=== PATIENT | female | born 1955 | race Caucasian/White ===

== ENCOUNTER → 2021-11-04 | Outpatient (REF) | payer MEDICARE, MEDICAID, SELFPAY ==
[2021-11-04 08:05] LABS: Anion Gap 4 (5-15); BUN 17 mg/dL (7-18); BUN/Creat Ratio 24.8 RATIO (10-20); Calcium,Total 8.6 mg/dL (8.5-10.1); Chloride 97 mmol/L (98-107); Creatinine, Serum 0.69 mg/dL (0.55-1.02); EST Glomerular Filtration Rate 91 mL/min (>60); Est Glom Filt Rate - Afr Amer 111 mL/min (>60); Glucose 91 mg/dL (74-106); Sodium Level 131 mmol/L (136-145)
== END | disposition home or self-care (01) ==
LOC: OLS.SWAL 05:00
DX: E87.1 Hypo-osmolality and hyponatremia (principal)
CPT/HCPCS: 36415; 80048

== ENCOUNTER → 2021-11-21 | Outpatient (REF) | payer MEDICARE, MEDICAID, SELFPAY ==
[2021-11-21 08:50] LABS: Anion Gap 6 (5-15); BUN 22 mg/dL (7-18); BUN/Creat Ratio 29.7 RATIO (10-20); Calcium,Total 9.3 mg/dL (8.5-10.1); Chloride 101 mmol/L (98-107); Creatinine, Serum 0.74 mg/dL (0.55-1.02); EST Glomerular Filtration Rate 84 mL/min (>60); Est Glom Filt Rate - Afr Amer 101 mL/min (>60); Glucose 82 mg/dL (74-106); Potassium 3.9 mmol/L (3.5-5.1); Sodium Level 136 mmol/L (136-145)
== END ==
LOC: OLS.SWAL 05:00
PROVIDERS: Visit Provider Nurse Practitioner Family
DX: I10 Essential (primary) hypertension (principal)
CPT/HCPCS: 36415; 80048

== ENCOUNTER 2022-01-15 14:39 | Emergency (ER) | payer MEDICARE, MEDICAID, SELFPAY ==
[2022-01-15 14:40] VITALS: BP 168/93; PULSE 104; RESP 16; TEMP 36.6; O2SAT 98; BMI 31.0
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
--- NOTE | 2022-01-15 15:50 | ED.RN ---
this rn called report back to nisha argueta, staff informed of pt discharge and that she will be returning home. friend ryan listed as emergency contact called and reports she will be in to take pt home as soon as she is able.
== END 2022-01-15 16:49 | disposition home or self-care (01) ==
PROVIDERS: Emergency Provider Emergency Medicine; Visit Provider Emergency Medicine
DX: F41.9 Anxiety disorder, unspecified (principal); I10 Essential (primary) hypertension; Z79.899 Other long term (current) drug therapy
CPT/HCPCS: 99284

== ENCOUNTER → 2022-01-27 | Outpatient (REF) | payer MEDICARE, MEDICAID, SELFPAY ==
[2022-01-27 08:06] LABS: Urine Sodium 39 mmol/L (Not Establ.)
[2022-01-27 08:15] LABS: Anion Gap 6 (5-15); BUN 16 mg/dL (7-18); BUN/Creat Ratio 22.1 RATIO (10-20); Calcium,Total 8.7 mg/dL (8.5-10.1); Chloride 101 mmol/L (98-107); Creatinine, Serum 0.72 mg/dL (0.55-1.02); EST Glomerular Filtration Rate 86 mL/min (>60); Est Glom Filt Rate - Afr Amer 104 mL/min (>60); Glucose 85 mg/dL (74-106); Potassium 3.9 mmol/L (3.5-5.1); Sodium Level 135 mmol/L (136-145)
[2022-01-27 08:55] LABS: Osmolality, Urine 678 mOsm/KG
== END ==
LOC: OLS.SWAL 05:00
PROVIDERS: Visit Provider Student in an Organized Health Care Education/Training Program
DX: I10 Essential (primary) hypertension (principal)
CPT/HCPCS: 36415; 80048; 83935; 84300

== ENCOUNTER → 2024-01-21 | Outpatient (REF) | payer MEDICARE, MEDICAID, SELFPAY ==
[2024-01-21 08:02] LABS: Hematocrit 36.4 % (37-47); Hemoglobin 11.6 g/dL (12.0-15.0); Mean Corp Hgb Conc 31.9 g/dL (32-36); Mean Corpuscular Volume 78.4 fL (81-99); Mean Platelet Vol. 9.2 fl (6.2-12.0); Platelet Count 327 K/mm3 (150-450); RBC Distribution Width CV 14.1 % (11.6-14.6); RBC Distribution Width SD 39.9 fl (35.1-43.9); Red Blood Count 4.64 M/mm3 (4.2-5.4); White Blood Count 4.2 K/mm3 (4.4-11.0)
[2024-01-21 08:20] LABS: Vitamin B12 746 pg/mL (211-911); Vitamin D,25 Hydroxy 25.9 ng/mL
[2024-01-21 08:33] LABS: ALB/GLOB Ratio 0.9 RATIO (0.9-2.4); AST(SGOT) 13 U/L (15-37); Alanine Aminotransfer ALT/SGPT 17 U/L (13-56); Albumin, Serum 3.3 g/dL (3.2-5.0); Alkaline Phosphatase 107 U/L (45-117); Anion Gap 8 (5-15); BUN 17 mg/dL (7-18); BUN/Creat Ratio 23.8 RATIO (10-20); Calcium,Total 9.2 mg/dL (8.5-10.1); Chloride 92 mmol/L (98-107); Cholesterol 132 mg/dL (200); Creatinine, Serum 0.72 mg/dL (0.55-1.02); EST Glomerular Filtration Rate 87 mL/min (>60); Est Glom Filt Rate - Afr Amer 105 mL/min (>60); Globulin 3.5 g/dL (2.2-4.2); Glucose 95 mg/dL (74-106); High Density Lipoprotein 56 mg/dL; Magnesium 1.9 mg/dL (1.6-2.6); Potassium 4.6 mmol/L (3.5-5.1); Protein, Total 6.8 g/dL (6.4-8.2); Sodium Level 126 mmol/L (136-145); Thyroid Stim Hormone (TSH) 0.811 uIU/mL (0.358-3.740); Triglycerides 46 mg/dL; Very Low Density Lipoprotein 9 mg/dL (5-40)
== END | disposition home or self-care (01) ==
LOC: OLS.SWAL 04:00
PROVIDERS: Visit Provider Internal Medicine
DX: E55.9 Vitamin D deficiency, unspecified (principal); I10 Essential (primary) hypertension; F41.9 Anxiety disorder, unspecified
CPT/HCPCS: 36415; 80053; 80061; 82306; 82607; 83735; 84443; 85027

== ENCOUNTER → 2024-01-29 00:50 | Outpatient (REF) | payer MEDICAID, SELFPAY ==
[2024-01-29 09:42] LABS: Anion Gap 8 (5-15); BUN 16 mg/dL (7-18); BUN/Creat Ratio 21.8 RATIO (10-20); Calcium,Total 9.1 mg/dL (8.5-10.1); Chloride 91 mmol/L (98-107); Creatinine, Serum 0.74 mg/dL (0.55-1.02); EST Glomerular Filtration Rate 84 mL/min (>60); Est Glom Filt Rate - Afr Amer 101 mL/min (>60); Glucose 92 mg/dL (74-106); Potassium 4.8 mmol/L (3.5-5.1); Sodium Level 125 mmol/L (136-145)
== END ==
LOC: OLS.SWAL 00:50
PROVIDERS: Visit Provider Internal Medicine
DX: I10 Essential (primary) hypertension (principal)
CPT/HCPCS: 36415; 80048

== ENCOUNTER → 2024-02-19 | Outpatient (REF) | payer MEDICAID, SELFPAY ==
[2024-02-19 08:59] LABS: Anion Gap 6 (5-15); BUN 14 mg/dL (7-18); BUN/Creat Ratio 20.2 RATIO (10-20); Calcium,Total 8.9 mg/dL (8.5-10.1); Chloride 96 mmol/L (98-107); Creatinine, Serum 0.69 mg/dL (0.55-1.02); EST Glomerular Filtration Rate 90 mL/min (>60); Est Glom Filt Rate - Afr Amer 109 mL/min (>60); Glucose 89 mg/dL (74-106); Potassium 4.9 mmol/L (3.5-5.1); Sodium Level 129 mmol/L (136-145)
== END | disposition home or self-care (01) ==
LOC: OLS.SWAL 05:00
PROVIDERS: Visit Provider Internal Medicine
DX: I10 Essential (primary) hypertension (principal)
CPT/HCPCS: 36415; 80048

== ENCOUNTER → 2024-04-14 | Outpatient (REF) | payer MEDICAID, SELFPAY ==
[2024-04-14 09:06] LABS: Anion Gap 7 (5-15); BUN 15 mg/dL (7-18); BUN/Creat Ratio 21.4 RATIO (10-20); Calcium,Total 8.9 mg/dL (8.5-10.1); Chloride 94 mmol/L (98-107); EST Glomerular Filtration Rate 88 mL/min (>60); Est Glom Filt Rate - Afr Amer 107 mL/min (>60); Glucose 88 mg/dL (74-106); Potassium 4.6 mmol/L (3.5-5.1); Sodium Level 129 mmol/L (136-145)
== END | disposition home or self-care (01) ==
LOC: OLS.SWAL 05:00
PROVIDERS: Visit Provider Internal Medicine
DX: E87.1 Hypo-osmolality and hyponatremia (principal)
CPT/HCPCS: 36415; 80048

== ENCOUNTER → 2024-05-02 | Outpatient (REF) | payer MEDICARE, MEDICAID, SELFPAY ==
[2024-05-02 08:11] LABS: Anion Gap 3 (5-15); BUN 18 mg/dL (7-18); Calcium,Total 8.9 mg/dL (8.5-10.1); Chloride 98 mmol/L (98-107); Creatinine, Serum 0.64 mg/dL (0.55-1.02); EST Glomerular Filtration Rate 98 mL/min (>60); Est Glom Filt Rate - Afr Amer 118 mL/min (>60); Glucose 99 mg/dL (74-106); Potassium 4.9 mmol/L (3.5-5.1); Sodium Level 129 mmol/L (136-145)
== END ==
LOC: OLS.SWAL 06:30
PROVIDERS: Visit Provider Internal Medicine
DX: E87.1 Hypo-osmolality and hyponatremia (principal)
CPT/HCPCS: 36415; 80048

== ENCOUNTER → 2024-11-17 05:00 | Outpatient (REF) | payer MEDICARE, MEDICAID, SELFPAY ==
[2024-11-17 09:13] LABS: Hematocrit 30.9 % (37-47); Hemoglobin 9.0 g/dL (12.0-15.0); Mean Corp Hgb Conc 29.1 g/dL (32-36); Mean Corpuscular Volume 70.5 fL (81-99); Mean Platelet Vol. 10.2 fl (6.2-12.0); Platelet Count 379 K/mm3 (150-450); RBC Distribution Width CV 15.3 % (11.6-14.6); RBC Distribution Width SD 38.5 fl (35.1-43.9); Red Blood Count 4.38 M/mm3 (4.2-5.4); White Blood Count 3.8 K/mm3 (4.4-11.0)
[2024-11-17 09:59] LABS: AST(SGOT) 15 U/L (<=31); Alanine Aminotransfer ALT/SGPT 9 U/L (<=34); Albumin, Serum 4.0 g/dL (3.4-4.8); Alkaline Phosphatase 104 U/L (35-104); Anion Gap 10 (5-15); BUN 13 mg/dL (4-19); BUN/Creat Ratio 20.7 RATIO (10-20); Calcium,Total 9.2 mg/dL (7.6-11.0); Carbon Dioxide 25.5 mmol/L (21.0-32.0); Chloride 99 mmol/L (98-108); Cholesterol 157 mg/dL (<=200); Globulin 2.6 g/dL (2.2-4.2); Glucose 91 mg/dL (70-99); Low Density Lipoprotein Calc. 77 mg/dL; Potassium 4.4 mmol/L (3.3-5.1); Triglycerides 76 mg/dL; Very Low Density Lipoprotein 15 mg/dL (5-40); cholesterol:hdl ratio screen 2.44
[2024-11-17 10:00] LABS: Vitamin D,25 Hydroxy 32.3 ng/mL (30-100)
== END ==
LOC: OLS.SWAL 05:00
PROVIDERS: Visit Provider Internal Medicine
DX: I10 Essential (primary) hypertension (principal)
CPT/HCPCS: 36415; 80053; 80061; 82306; 84443; 85027

== ENCOUNTER → 2024-11-24 | Outpatient (REF) | payer MEDICARE, MEDICAID, SELFPAY ==
[2024-11-24 08:54] LABS: Hematocrit 30.1 % (37-47); Hemoglobin 8.6 g/dL (12.0-15.0); Mean Corp Hgb Conc 28.6 g/dL (32-36); Mean Corpuscular Volume 70.2 fL (81-99); Mean Platelet Vol. 10.2 fl (6.2-12.0); Platelet Count 389 K/mm3 (150-450); RBC Distribution Width CV 15.6 % (11.6-14.6); RBC Distribution Width SD 38.7 fl (35.1-43.9); Red Blood Count 4.29 M/mm3 (4.2-5.4); White Blood Count 3.9 K/mm3 (4.4-11.0)
--- OUTSIDE RECORDS SUMMARY | 2024-11-24 09:54 | XMS RPT_ITS | CCD ---
Author Organization [facility] Care Team Providers Care [employer] Name Role Phone AMINATA BRANDON CNP Admitting Unavailable AMINATA BRANDON CNP Attending Unavailable AMINATA BRANDON CNP Primary Care Unavailable AMINATA BRANDON CNP Consulting Unavailable PROVIDER, UNKNOWN Consulting Unavailable PROVIDER, UNKNOWN Consulting Unavailable Samanta Quevedo Attending Unavailable Care Physician, No Primary Primary Care Unava ilable GuSamanta Carias Attending Unavailable Care Physician, No Primary Primary Care Unava ilable GuSamanta Carias Attending Unavailable Care Physician, No Primary Primary Care Unava ilable GuSamanta Carias Attending Unavailable Care Physician, No Primary Primary Care Unava ilable Gudla Samanta PANCHAL Attending Unavailable Care Physician, No Primary Primary Care Unava ilable Samanta Quevedo Attending Unavailable Care Physician, No Primary Primary Care Unava ilable Medications Current Medications Medication Drug Class(es) Dates Sig (Normalized) Sig (Original) acetaminophen 650 mg oral tablet (2 sources) Start: 01-15-2022 acetaminophen Active 650 MG SL/PO NEEDED January 14, 2022 11:00pm amLODIPine 10 mg oral tablet (2 sources) Dihydropyridine Calcium Channel Justa Start: 01-15-2022 take 10 mg by mouth once daily amlodipine Active 10 MG SL/PO DAILY January 14, 2022 11:00pm furosemide 20 mg oral tablet (2 sources) Loop Diuretic Start: 01-15-2022 take 20 mg by mouth once daily furosemide Active 20 MG SL/PO DAILY January 14, 2022 11:00pm lisinopril 30 mg oral tablet (2 sources) Angiotensin Converting Enzyme Inhibitor Start: 01-15-2022 take 30 mg by mouth once daily lisinopril Active 30 MG SL/PO DAILY January 14, 2022 11:00pm loratadine 10 mg oral tablet (2 sources) Start: 01-15-2022 take 10 mg by mouth once daily Claritin Active 10 MG SL/PO DAILY January 14, 2022 11:00pm Normal saline (2 sources) Start: 01-15-2022 Saline Nasal Active 1 SPRAY NARES EVERY 4 HOURS NEEDED January 14, 2022 11:00pm Start: 01-15-2022 Saline Nasal A ctive 1 SPRAY NARES EVERY 4 HOURS NEEDED January 15, 2022 12:00am Problems Active Problems Problem Classification Problem Date Documented Da te Episodic/Chronic Anxiety disorders (3 sources) Anxiety; Translations: [Anxiety disorder, unspecified] Onset: 02-26-2024 Chronic Disorders of lipid metabolism (1 source) Hyperlipidemia, unspecified; Translations: [Hyperlipidemia, unspecified] Onset: 11-07-2023 Chronic Essential hypertension (3 sources) Essential (primary) hypertension; Translations: [Essential (primary) hypertension] Onset: 11-07-2023 Chronic 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; 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 Past or Other Problems Problem Classification Problem Date Documented Da te Episodic/Chronic Fluid and electrolyte disorders (2 sources) Hypo-osmolality and hyponatremia; Translations: [Hypo-osmolality and hyponatremia] Onset: 11-07-2023 Episodic Results Test Name Value Interpretation Reference Range Facil ity CBC-Complete Blood Cnt No Di ffon 11-17-2024 Erythrocyte distribution width (RBC) [Ratio] 15.3 % High 11.6-14.6 [facility] Comment on above: Order Comment: 108 Performed By: #### L 506.1000, L503.0105, L501.5200, L501.9520, L100.0500, L500.4050, L500.4100 #### [facility] [address] [place], [address] Hematocrit (Bld) [Volume fraction] 30.9 % Low 37-47 [facility] Comment on above: Order Comment: 108 Performed By: #### L 506.1000, L503.0105, L501.5200, L501.9520, L100.0500, L500.4050, L500.4100 #### [facility] [address] [place], [address] Hemoglobin (Bld) [Mass/Vol] 9.0 g/dL Low 12.0-15.0 [facility] Comment on above: Order Comment: 108 Performed By: #### L 506.1000, L503.0105, L501.5200, L501.9520, L100.0500, L500.4050, L500.4100 #### [facility] [address] [place], [address] MCH (RBC) [Entitic mass] 20.5 pg Low 27.0-32.0 [facility] Comment on above: Order Comment: 108 Performed By: #### L 506.1000, L503.0105, L501.5200, L501.9520, L100.0500, L500.4050, L500.4100 #### [facility] [address] [place], [address] MCHC (RBC) [Mass/Vol] 29.1 g/dL Low 32-36 [facility] Comment on above: Order Comment: 108 Performed By: #### L 506.1000, L503.0105, L501.5200, L501.9520, L100.0500, L500.4050, L500.4100 #### [facility] [address] [place], [address] MCV (RBC) [Entitic vol] 70.5 fL Low 81-99 [facility] Comment on above: Order Comment: 108 Performed By: #### L 506.1000, L503.0105, L501.5200, L501.9520, L100.0500, L500.4050, L500.4100 #### [facility] [address] [place], [address] Platelet mean volume (Bld) [Entitic vol] 10.2 fL Normal 6.2-12.0 [facility] Comment on above: Order Comment: 108 Performed By: #### L 506.1000, L503.0105, L501.5200, L501.9520, L100.0500, L500.4050, L500.4100 #### [facility] [address] [place], [address] Platelets (Bld) [#/Vol] 379 10*3/uL Normal 150-450 [facility] Comment on above: Order Comment: 108 Performed By: #### L 506.1000, L503.0105, L501.5200, L501.9520, L100.0500, L500.4050, L500.4100 #### [facility] [address], [address] RBC (Bld) [#/Vol] 4.38 10*6/uL Normal 4.2-5.4 [facility] Comment on above: Order Comment: 108 Performed By: #### L 506.1000, L503.0105, L501.5200, L501.9520, L100.0500, L500.4050, L500.4100 #### [facility] [address] [place], [address] RDW SD 38.5 fl Normal 35.1-43.9 [facility] Comment on above: Order Comment: 108 Performed By: #### L 506.1000, L503.0105, L501.5200, L501.9520, L100.0500, L500.4050, L500.4100 #### [facility] [address] [place], [address] WBC (Bld) [#/Vol] 3.8 10*3/uL Low 4.4-11.0 [facility] Comment on above: Order Comment: 108 Performed By: #### L 506.1000, L503.0105, L501.5200, L501.9520, L100.0500, L500.4050, L500.4100 #### [facility] [address] [place], [address] Comprehensive Metabolic Prof ilon 11-17-2024 Albumin [Mass/Vol] 4.0 g/dL Normal 3.4-4.8 [facility] Comment on above: Order Comment: 108 Performed By: #### L 506.1000, L503.0105, L501.5200, L501.9520, L100.0500, L500.4050, L500.4100 #### [facility] [address] [place], [address] Albumin/Globulin [Mass ratio] 1.5 {ratio} Normal 0.9-2.4 [facility] Comment on above: Order Comment: 108 Performed By: #### L 506.1000, L503.0105, L501.5200, L501.9520, L100.0500, L500.4050, L500.4100 #### [facility] [address] [place], [address] ALK PHOS 104 U/L Normal 35-104 [facility] Comment on above: Order Comment: 108 Performed By: #### L 506.1000, L503.0105, L501.5200, L501.9520, L100.0500, L500.4050, L500.4100 #### [facility] [address] [place], [address] ALT [Catalytic activity/Vol] 9 U/L Normal <=34 [facility] Comment on above: Order Comment: 108 Performed By: #### L 506.1000, L503.0105, L501.5200, L501.9520, L100.0500, L500.4050, L500.4100 #### [facility] [address] [place], [address] AST [Catalytic activity/Vol] 15 U/L Normal <=31 [facility] Comment on above: Order Comment: 108 Performed By: #### L 506.1000, L503.0105, L501.5200, L501.9520, L100.0500, L500.4050, L500.4100 #### [facility] [address] [place], [address] Bilirubin [Mass/Vol] 0.21 mg/dL Normal 0.00-1.30 [facility] Comment on above: Order Comment: 108 Performed By: #### L 506.1000, L503.0105, L501.5200, L501.9520, L100.0500, L500.4050, L500.4100 #### [facility] [address] [place], [address] BUN/CRE 20.7 RATIO High 10-20 [facility] Comment on above: Order Comment: 108 Performed By: #### L 506.1000, L503.0105, L501.5200, L501.9520, L100.0500, L500.4050, L500.4100 #### [facility] [address] [place], [address] Calcium [Mass/Vol] 9.2 mg/dL Normal 7.6-11.0 [facility] Comment on above: Order Comment: 108 Performed By: #### L 506.1000, L503.0105, L501.5200, L501.9520, L100.0500, L500.4050, L500.4100 #### [facility] [address] [place], [address] Chloride [Moles/Vol] 99 mmol/L Normal 98-108 [facility] Comment on above: Order Comment: 108 Performed By: #### L 506.1000, L503.0105, L501.5200, L501.9520, L100.0500, L500.4050, L500.4100 #### [facility] [address] [place], [address] CO2 [Moles/Vol] 25.5 mmol/L Normal 21.0-32.0 [facility] Comment on above: Order Comment: 108 Performed By: #### L 506.1000, L503.0105, L501.5200, L501.9520, L100.0500, L500.4050, L500.4100 #### [facility] [address] [place], [address] Creatinine [Mass/Vol] 0.62 mg/dL Low 0.70-1.20 [facility] Comment on above: Order Comment: 108 Performed By: #### L 506.1000, L503.0105, L501.5200, L501.9520, L100.0500, L500.4050, L500.4100 #### [facility] [address] [place], [place], [id number] ([address] GAP 10 Normal 5-15 [facility] Comment on above: Order Comment: 108 Performed By: #### L 506.1000, L503.0105, L501.5200, L501.9520, L100.0500, L500.4050, L500.4100 #### [facility] [address] [place], [address] GFR/1.73 sq M.predicted among non-blacks MDRD (S/P/Bld) [Vol rate/Area] 97 mL/min/{1.73_m2} Normal >60 [facility] Comment on above: Order Comment: 108 Result Comment: mL/m in/1.73m2 CKD-EPI Creatinine Equation (2020) Performed By: #### L 506.1000, L503.0105, L501.5200, L501.9520, L100.0500, L500.4050, L500.4100 #### [facility] [address] [place], [address] Globulin (S) [Mass/Vol] 2.6 g/dL Normal 2.2-4.2 [facility] Comment on above: Order Comment: 108 Performed By: #### L 506.1000, L503.0105, L501.5200, L501.9520, L100.0500, L500.4050, L500.4100 #### [facility] [address] [place], [address] Glucose [Mass/Vol] 91 mg/dL Normal 70-99 [facility] Comment on above: Order Comment: 108 Performed By: #### L 506.1000, L503.0105, L501.5200, L501.9520, L100.0500, L500.4050, L500.4100 #### [facility] [address] [place], [address] Potassium [Moles/Vol] 4.4 mmol/L Normal 3.3-5.1 [facility] Comment on above: Order Comment: 108 Performed By: #### L 506.1000, L503.0105, L501.5200, L501.9520, L100.0500, L500.4050, L500.4100 #### [facility] [address] [place], [address] Sodium [Moles/Vol] 135 mmol/L Normal 133-145 [facility] Comment on above: Order Comment: 108 Performed By: #### L 506.1000, L503.0105, L501.5200, L501.9520, L100.0500, L500.4050, L500.4100 #### [facility] [address] [place], [address] T PROT 6.6 g/dL Normal 5.9-8.4 [facility] Comment on above: Order Comment: 108 Performed By: #### L 506.1000, L503.0105, L501.5200, L501.9520, L100.0500, L500.4050, L500.4100 #### [facility] [address] [place], [address] Urea nitrogen [Mass/Vol] 13 mg/dL Normal 4-19 [facility] Comment on above: Order Comment: 108 Performed By: #### L 506.1000, L503.0105, L501.5200, L501.9520, L100.0500, L500.4050, L500.4100 #### [facility] [address] [place], [address] Lipid Profileon 11-17-2024 CHOL:HDL 2.44 Normal [facility] Comment on above: Order Comment: 108 Performed By: #### L 506.1000, L503.0105, L501.5200, L501.9520, L100.0500, L500.4050, L500.4100 #### [facility] [address] [place], [address] Cholesterol [Mass/Vol] 157 mg/dL Normal <=200 [facility] Comment on above: Order Comment: 108 Result Comment: Chol esterol level, Desirable <200 mg/dL Borderline high cholesterol 200-239 mg/dL High cholesterol >=240 mg/dL Recommendations of the NCEP Adult Treatment Panel for the following risk-cutoff thresholds for the [place] population. Performed By: #### L 506.1000, L503.0105, L501.5200, L501.9520, L100.0500, L500.4050, L500.4100 #### [facility] [address] [place], [address] Cholesterol in HDL [Mass/Vol] 64 mg/dL Normal [facility] Comment on above: Order Comment: 108 Result Comment: Layne onal Cholesterol Education Program (NCEP) guidelines: <40 mg/dL: Low HDL-cholesterol (major risk factor for CHD) >= 60 mg/dL: High HDL-cholesterol (negative risk factor for CHD) HDL-cholesterol is affected by a number of factors, e.g. smoking, exercise, hormones, sex and age. Performed By: #### L 506.1000, L503.0105, L501.5200, L501.9520, L100.0500, L500.4050, L500.4100 #### [facility] [address] [place], [address] (102 Cholesterol in LDL [Mass/Vol] 77 mg/dL Normal [facility] Comment on above: Order Comment: 108 Result Comment: Bord dfooed=594-187 mg/dL Higher Rntu=696 mg/dL or greater Friedwald Equation for LDL-C Performed By: #### L 506.1000, L503.0105, L501.5200, L501.9520, L100.0500, L500.4050, L500.4100 #### [facility] [address] [place], [address] ([address] Cholesterol in VLDL [Mass/Vol] 15 mg/dL Normal 5-40 [facility] Comment on above: Order Comment: 108 Performed By: #### L 506.1000, L503.0105, L501.5200, L501.9520, L100.0500, L500.4050, L500.4100 #### [facility] [address] [place], [address] (649 Triglyceride [Mass/Vol] 76 mg/dL Normal [facility] Comment on above: Order Comment: 108 Result Comment: The drugs N-Acetylcysteine and Metamizole may falsely depress this assay. Normal range: <150 mg/dL Borderline High: 150-199 mg/dL High: 200-499 mg/dL Very High: >500 mg/dL Performed By: #### L 506.1000, L503.0105, L501.5200, L501.9520, L100.0500, L500.4050, L500.4100 #### [facility] [address] [place], [address] (933 Thyroid Stim Hormone (TSH)on 11-17-2024 TSH 1.870 uIU/mL Normal 0.300-4.200 [facility] Comment on above: Order Comment: 108 Performed By: #### L 506.1000, L503.0105, L501.5200, L501.9520, L100.0500, L500.4050, L500.4100 #### [facility] [address] [place], [address] Vitamin D,25 Hydroxyon 11-17 Vitamin D 25-OH 32.3 ng/mL Normal 30-100 [facility] Comment on above: Order Comment: 108 Result Comment: Gloria min D Status Deficiency: <20 ng/mL (50nmol/L) Insufficiency: 20-30 ng/mL (50-75 nmol/L) Sufficiency: 30-100 ng/mL (75-250 nmol/L) Toxicity: >100 ng/mL (>250 nmol/L) Performed By: #### L 506.1000, L503.0105, L501.5200, L501.9520, L100.0500, L500.4050, L500.4100 #### [facility] [address] [place], [address] Basic Metabolic Profile (BMP )on 05-02-2024 BUN/CRE 28.0 RATIO High 02-09 [facility] Comment on above: Order Comment: 108 Performed By: #### L 506.1000, L503.0105, L501.5200, L501.9520, L100.0500, L500.4050, L500.4100 #### [facility] [address] [place], [address] CA,Total 8.9 mg/dL Normal 8.5-10.1 [facility] Comment on above: Order Comment: 108 Performed By: #### L 506.1000, L503.0105, L501.5200, L501.9520, L100.0500, L500.4050, L500.4100 #### [facility] [address] [place], [address] Chloride [Moles/Vol] 98 mmol/L Normal 98-107 [facility] Comment on above: Order Comment: 108 Performed By: #### L 506.1000, L503.0105, L501.5200, L501.9520, L100.0500, L500.4050, L500.4100 #### [facility] [address] [place], [address] CO2 [Moles/Vol] 28.0 mmol/L Normal 21.0-32.0 [facility] Comment on above: Order Comment: 108 Performed By: #### L 506.1000, L503.0105, L501.5200, L501.9520, L100.0500, L500.4050, L500.4100 #### [facility] [address] [place], [place], [id number] (654) Creatinine [Mass/Vol] 0.64 mg/dL Normal 0.55-1.02 [facility] Comment on above: Order Comment: 108 Result Comment: The validity of the calculated GFR GFRAA in patients over 70 years has not been determined. Clinical correlation is essential. Performed By: #### L 506.1000, L503.0105, L501.5200, L501.9520, L100.0500, L500.4050, L500.4100 #### [facility] [address] [place], [place], [id number] (149 EST GFR - AA 118 mL/min Normal >60 [facility] Comment on above: Order Comment: 108 Result Comment: Afri can [place]e GFR Calc Performed By: #### L 506.1000, L503.0105, L501.5200, L501.9520, L100.0500, L500.4050, L500.4100 #### [facility] [address] [place], [address] GAP 3 Low 5-15 [facility] Comment on above: Order Comment: 108 Performed By: #### L 506.1000, L503.0105, L501.5200, L501.9520, L100.0500, L500.4050, L500.4100 #### [facility] [address] [place], [address] GFR/1.73 sq M.predicted among non-blacks MDRD (S/P/Bld) [Vol rate/Area] 98 mL/min/{1.73_m2} Normal >60 [facility] Comment on above: Order Comment: 108 Result Comment: Non- GFR Calc Performed By: #### L 506.1000, L503.0105, L501.5200, L501.9520, L100.0500, L500.4050, L500.4100 #### [facility] [address] [place], [address] Glucose [Mass/Vol] 99 mg/dL Normal 74-106 [facility] Comment on above: Order Comment: 108 Performed By: #### L 506.1000, L503.0105, L501.5200, L501.9520, L100.0500, L500.4050, L500.4100 #### [facility] [address] [place], [address] Potassium [Moles/Vol] 4.9 mmol/L Normal 3.5-5.1 [facility] Comment on above: Order Comment: 108 Performed By: #### L 506.1000, L503.0105, L501.5200, L501.9520, L100.0500, L500.4050, L500.4100 #### [facility] [address] [place], [address] Sodium [Moles/Vol] 129 mmol/L Low 136-145 [facility] Comment on above: Order Comment: 108 Performed By: #### L 506.1000, L503.0105, L501.5200, L501.9520, L100.0500, L500.4050, L500.4100 #### [facility] [address] [place], [address] Urea nitrogen [Mass/Vol] 18 mg/dL Normal 7-18 [facility] Comment on above: Order Comment: 108 Performed By: #### L 506.1000, L503.0105, L501.5200, L501.9520, L100.0500, L500.4050, L500.4100 #### [facility] [address] [place], [address] Basic Metabolic Profile (BMP )on 04-14-2024 BUN/CRE 21.4 RATIO High 10-20 [facility] Comment on above: Order Comment: 108 Performed By: #### L 500.2500 #### [facility] [address] [place], [address] CA,Total 8.9 mg/dL Normal 8.5-10.1 [facility] Comment on above: Order Comment: 108 Performed By: #### L 500.2500 #### [facility] [address] [place], [address] Chloride [Moles/Vol] 94 mmol/L Low 98-107 [facility] Comment on above: Order Comment: 108 Performed By: #### L 500.2500 #### [facility] [address] [place], [address] CO2 [Moles/Vol] 27.0 mmol/L Normal 21.0-32.0 [facility] Comment on above: Order Comment: 108 Performed By: #### L 500.2500 #### [facility] [address] [place], [address] Creatinine [Mass/Vol] 0.70 mg/dL Normal 0.55-1.02 [facility] Comment on above: Order Comment: 108 Result Comment: The validity of the calculated GFR GFRAA in patients over 70 years has not been determined. Clinical correlation is essential. Performed By: #### L 500.2500 #### [facility] [address] [place], [address] EST GFR - AA 107 mL/min Normal >60 [facility] Comment on above: Order Comment: 108 Result Comment: Afri can [place] GFR Calc Performed By: #### L 500.2500 #### [facility] [address] [place], [address] GAP 7 Normal 5-15 [facility] Comment on above: Order Comment: 108 Performed By: #### L 500.2500 #### [facility] [address] [place], [address] GFR/1.73 sq M.predicted among non-blacks MDRD (S/P/Bld) [Vol rate/Area] 88 mL/min/{1.73_m2} Normal >60 [facility] Comment on above: Order Comment: 108 Result Comment: Non- GFR Calc Performed By: #### L 500.2500 #### [facility] [address] [place], [address] Glucose [Mass/Vol] 88 mg/dL Normal 74-106 [facility] Comment on above: Order Comment: 108 Performed By: #### L 500.2500 #### [facility] [address] [place], [address] Potassium [Moles/Vol] 4.6 mmol/L Normal 3.5-5.1 [facility] Comment on above: Order Comment: 108 Performed By: #### L 500.2500 #### [facility] [address] [place], [address] Sodium [Moles/Vol] 129 mmol/L Low 136-145 [facility] Comment on above: Order Comment: 108 Performed By: #### L 500.2500 #### [facility] [address] [place], [address] Urea nitrogen [Mass/Vol] 15 mg/dL Normal 7-18 [facility] Comment on above: Order Comment: 108 Performed By: #### L 500.2500 #### [facility] [address] [place], [address] Basic Metabolic Profile (BMP )on 02-19-2024 BUN/CRE 20.2 RATIO High - [facility] Comment on above: Order Comment: 1108 Performed By: #### L 500.2500 #### [facility] [address] [place], [address] CA,Total 8.9 mg/dL Normal 8.5-10.1 [facility] Comment on above: Order Comment: 1108 Performed By: #### L 500.2500 #### [facility] [address] [place], [address] Chloride [Moles/Vol] 96 mmol/L Low 98-107 [facility] Comment on above: Order Comment: 1108 Performed By: #### L 500.2500 #### [facility] [address] [place], [address] CO2 [Moles/Vol] 28.0 mmol/L Normal 21.0-32.0 [facility] Comment on above: Order Comment: 1108 Performed By: #### L 500.2500 #### [facility] [address] [place], [address] Creatinine [Mass/Vol] 0.69 mg/dL Normal 0.55-1.02 [facility] Comment on above: Order Comment: 1108 Result Comment: The validity of the calculated GFR GFRAA in patients over 70 years has not been determined. Clinical correlation is essential. Performed By: #### L 500.2500 #### [facility] [address] [place], [address] EST GFR - AA 109 mL/min Normal >60 [facility] Comment on above: Order Comment: 1108 Result Comment: Afri can Gabonese GFR Calc Performed By: #### L 500.2500 #### [facility] [address] [place], [address] GAP 6 Normal 5-15 [facility] Comment on above: Order Comment: 1108 Performed By: #### L 500.2500 #### [facility] [address], [address] GFR/1.73 sq M.predicted among non-blacks MDRD (S/P/Bld) [Vol rate/Area] 90 mL/min/{1.73_m2} Normal >60 [facility] Comment on above: Order Comment: 1108 Result Comment: Non- GFR Calc Performed By: #### L 500.2500 #### [facility] [address] [place], [address] Glucose [Mass/Vol] 89 mg/dL Normal 74-106 [facility] Comment on above: Order Comment: 1108 Performed By: #### L 500.2500 #### [facility] [address], [address] Potassium [Moles/Vol] 4.9 mmol/L Normal 3.5-5.1 [facility] Comment on above: Order Comment: 1108 Performed By: #### L 500.2500 #### [facility] [address] [place], [address] Sodium [Moles/Vol] 129 mmol/L Low 136-145 [facility] Comment on above: Order Comment: 1108 Performed By: #### L 500.2500 #### [facility] [address] [place], [address] Urea nitrogen [Mass/Vol] 14 mg/dL Normal 7-18 [facility] Comment on above: Order Comment: 1108 Performed By: #### L 500.2500 #### [facility] [address] [place] [place], [address] Basic Metabolic Profile (BMP )on 01-29-2024 BUN/CRE 21.8 RATIO High 10-20 [facility] Comment on above: Order Comment: 108 Performed By: #### L 500.2500 #### [facility] [address] [place] [place], [address] CA,Total 9.1 mg/dL Normal 8.5-10.1 [facility] Comment on above: Order Comment: 108 Performed By: #### L 500.2500 #### [facility] [address] [place], [address] Chloride [Moles/Vol] 91 mmol/L Low 98-107 [facility] Comment on above: Order Comment: 108 Performed By: #### L 500.2500 #### [facility] [address] [place], [address] CO2 [Moles/Vol] 26.0 mmol/L Normal 21.0-32.0 [facility] Comment on above: Order Comment: 108 Performed By: #### L 500.2500 #### [facility] [address] [place], [address] Creatinine [Mass/Vol] 0.74 mg/dL Normal 0.55-1.02 [facility] Comment on above: Order Comment: 108 Result Comment: The validity of the calculated GFR GFRAA in patients over 70 years has not been determined. Clinical correlation is essential. Performed By: #### L 500.2500 #### [facility] [address] [place], [address] EST GFR - AA 101 mL/min Normal >60 [facility] Comment on above: Order Comment: 108 Result Comment: Afri can Gabonese GFR Calc Performed By: #### L 500.2500 #### [facility] [address] [place], [address] GAP 8 Normal 5-15 [facility] Comment on above: Order Comment: 108 Performed By: #### L 500.2500 #### [facility] [address] [place], [address] GFR/1.73 sq M.predicted among non-blacks MDRD (S/P/Bld) [Vol rate/Area] 84 mL/min/{1.73_m2} Normal >60 [facility] Comment on above: Order Comment: 108 Result Comment: Non- GFR Calc Performed By: #### L 500.2500 #### [facility] [address] [place], [address] Glucose [Mass/Vol] 92 mg/dL Normal 74-106 [facility] Comment on above: Order Comment: 108 Performed By: #### L 500.2500 #### [facility] [address] [place], [address] Potassium [Moles/Vol] 4.8 mmol/L Normal 3.5-5.1 [facility] Comment on above: Order Comment: 108 Performed By: #### L 500.2500 #### [facility] [address] [place], [address] Sodium [Moles/Vol] 125 mmol/L Low 136-145 [facility] Comment on above: Order Comment: 108 Performed By: #### L 500.2500 #### [facility] [address] [place], [address] Urea nitrogen [Mass/Vol] 16 mg/dL Normal 7-18 [facility] Comment on above: Order Comment: 108 Performed By: #### L 500.2500 #### [facility] [address] [place], [address] CBC-Complete Blood Cnt No Di ffon 01-21-2024 Erythrocyte distribution width (RBC) [Ratio] 14.1 % Normal 11.6-14.6 [facility] Comment on above: Order Comment: 108 Performed By: #### L 506.1000, L503.0105, L501.5200, L501.9520, L100.0500, L500.4050, L500.4100 #### [facility] [address] [place], [address] Hematocrit (Bld) [Volume fraction] 36.4 % Low 37-47 [facility] Comment on above: Order Comment: 108 Performed By: #### L 506.1000, L503.0105, L501.5200, L501.9520, L100.0500, L500.4050, L500.4100 #### [facility] [address] [facility] [place], [address] Hemoglobin (Bld) [Mass/Vol] 11.6 g/dL Low 12.0-15.0 [facility] Comment on above: Order Comment: 108 Performed By: #### L 506.1000, L503.0105, L501.5200, L501.9520, L100.0500, L500.4050, L500.4100 #### [facility] [address] [facility] [place], [address] MCH (RBC) [Entitic mass] 25.0 pg Low 27.0-32.0 [facility] Comment on above: Order Comment: 108 Performed By: #### L 506.1000, L503.0105, L501.5200, L501.9520, L100.0500, L500.4050, L500.4100 #### [facility] [address] [place], [address] MCHC (RBC) [Mass/Vol] 31.9 g/dL Low 32-36 [facility] Comment on above: Order Comment: 108 Performed By: #### L 506.1000, L503.0105, L501.5200, L501.9520, L100.0500, L500.4050, L500.4100 #### [facility] [address] [facility] [place], [address] MCV (RBC) [Entitic vol] 78.4 fL Low 81-99 [facility] Comment on above: Order Comment: 108 Performed By: #### L 506.1000, L503.0105, L501.5200, L501.9520, L100.0500, L500.4050, L500.4100 #### [facility] [address] [place], [address] Platelet mean volume (Bld) [Entitic vol] 9.2 fL Normal 6.2-12.0 [facility] Comment on above: Order Comment: 108 Performed By: #### L 506.1000, L503.0105, L501.5200, L501.9520, L100.0500, L500.4050, L500.4100 #### [facility] [address] [place], [address] Platelets (Bld) [#/Vol] 327 10*3/uL Normal 150-450 [facility] Comment on above: Order Comment: 108 Performed By: #### L 506.1000, L503.0105, L501.5200, L501.9520, L100.0500, L500.4050, L500.4100 #### [facility] [address] [place], [address] RBC (Bld) [#/Vol] 4.64 10*6/uL Normal 4.2-5.4 [facility] Comment on above: Order Comment: 108 Performed By: #### L 506.1000, L503.0105, L501.5200, L501.9520, L100.0500, L500.4050, L500.4100 #### [facility] [address] [place], [address] RDW SD 39.9 fl Normal 35.1-43.9 [facility] Comment on above: Order Comment: 108 Performed By: #### L 506.1000, L503.0105, L501.5200, L501.9520, L100.0500, L500.4050, L500.4100 #### [facility] [address] [place], [address] WBC (Bld) [#/Vol] 4.2 10*3/uL Low 4.4-11.0 [facility] Comment on above: Order Comment: 108 Performed By: #### L 506.1000, L503.0105, L501.5200, L501.9520, L100.0500, L500.4050, L500.4100 #### [facility] [address] [place], [address] Comprehensive Metabolic Prof ilon 01-21-2024 Albumin [Mass/Vol] 3.3 g/dL Normal 3.2-5.0 [facility] Comment on above: Order Comment: 108 Performed By: #### L 506.1000, L503.0105, L501.5200, L501.9520, L100.0500, L500.4050, L500.4100 #### [facility] [address] [place], [address] Albumin/Globulin [Mass ratio] 0.9 {ratio} Normal 0.9-2.4 [facility] Comment on above: Order Comment: 108 Performed By: #### L 506.1000, L503.0105, L501.5200, L501.9520, L100.0500, L500.4050, L500.4100 #### [facility] [address] [place], [address] ALK P 107 U/L Normal 45-117 [facility] Comment on above: Order Comment: 108 Performed By: #### L 506.1000, L503.0105, L501.5200, L501.9520, L100.0500, L500.4050, L500.4100 #### [facility] [address] [place], [address] ALT [Catalytic activity/Vol] 17 U/L Normal 13-56 [facility] Comment on above: Order Comment: 108 Performed By: #### L 506.1000, L503.0105, L501.5200, L501.9520, L100.0500, L500.4050, L500.4100 #### [facility] [address] [place], [address] AST [Catalytic activity/Vol] 13 U/L Low 15-37 [facility] Comment on above: Order Comment: 108 Performed By: #### L 506.1000, L503.0105, L501.5200, L501.9520, L100.0500, L500.4050, L500.4100 #### [facility] [address] [place], [address] Bilirubin [Mass/Vol] 0.40 mg/dL Normal 0.20-1.00 [facility] Comment on above: Order Comment: 108 Result Comment: For patients on eltrombopag therapy, use of Dimension Mcintosh TBIL is not recommended. Performed By: #### L 506.1000, L503.0105, L501.5200, L501.9520, L100.0500, L500.4050, L500.4100 #### [facility] [address] [place], [address] BUN/CRE 23.8 RATIO High 10-20 [facility] Comment on above: Order Comment: 108 Performed By: #### L 506.1000, L503.0105, L501.5200, L501.9520, L100.0500, L500.4050, L500.4100 #### [facility] [address] [place], [address] CA,Total 9.2 mg/dL Normal 8.5-10.1 [facility] Comment on above: Order Comment: 108 Performed By: #### L 506.1000, L503.0105, L501.5200, L501.9520, L100.0500, L500.4050, L500.4100 #### [facility] [address] [place], [address] Chloride [Moles/Vol] 92 mmol/L Low 98-107 [facility] Comment on above: Order Comment: 108 Performed By: #### L 506.1000, L503.0105, L501.5200, L501.9520, L100.0500, L500.4050, L500.4100 #### [facility] [address] [place], [address] CO2 [Moles/Vol] 26.0 mmol/L Normal 21.0-32.0 [facility] Comment on above: Order Comment: 108 Performed By: #### L 506.1000, L503.0105, L501.5200, L501.9520, L100.0500, L500.4050, L500.4100 #### [facility] [address] [place], [address] Creatinine [Mass/Vol] 0.72 mg/dL Normal 0.55-1.02 [facility] Comment on above: Order Comment: 108 Result Comment: The validity of the calculated GFR GFRAA in patients over 70 years has not been determined. Clinical correlation is essential. Performed By: #### L 506.1000, L503.0105, L501.5200, L501.9520, L100.0500, L500.4050, L500.4100 #### [facility] [address] [place], [address] EST GFR - AA 105 mL/min Normal >60 [facility] Comment on above: Order Comment: 108 Result Comment: Afri can Gabonese GFR Calc Performed By: #### L 506.1000, L503.0105, L501.5200, L501.9520, L100.0500, L500.4050, L500.4100 #### [facility] [address] [place], [address] GAP 8 Normal 5-15 [facility] Comment on above: Order Comment: 108 Performed By: #### L 506.1000, L503.0105, L501.5200, L501.9520, L100.0500, L500.4050, L500.4100 #### [facility] [address] [place], [address] GFR/1.73 sq M.predicted among non-blacks MDRD (S/P/Bld) [Vol rate/Area] 87 mL/min/{1.73_m2} Normal >60 [facility] Comment on above: Order Comment: 108 Result Comment: Non- GFR Calc Performed By: #### L 506.1000, L503.0105, L501.5200, L501.9520, L100.0500, L500.4050, L500.4100 #### [facility] [address] [place], [address] Globulin (S) [Mass/Vol] 3.5 g/dL Normal 2.2-4.2 [facility] Comment on above: Order Comment: 108 Performed By: #### L 506.1000, L503.0105, L501.5200, L501.9520, L100.0500, L500.4050, L500.4100 #### [facility] [address] [place], [address] Glucose [Mass/Vol] 95 mg/dL Normal 74-106 [facility] Comment on above: Order Comment: 108 Performed By: #### L 506.1000, L503.0105, L501.5200, L501.9520, L100.0500, L500.4050, L500.4100 #### [facility] [address] [place], [address] Potassium [Moles/Vol] 4.6 mmol/L Normal 3.5-5.1 [facility] Comment on above: Order Comment: 108 Performed By: #### L 506.1000, L503.0105, L501.5200, L501.9520, L100.0500, L500.4050, L500.4100 #### [facility] [address] [place], [address] Sodium [Moles/Vol] 126 mmol/L Low 136-145 [facility] Comment on above: Order Comment: 108 Performed By: #### L 506.1000, L503.0105, L501.5200, L501.9520, L100.0500, L500.4050, L500.4100 #### [facility] [address] [place], [address] T PROT 6.8 g/dL Normal 6.4-8.2 [facility] Comment on above: Order Comment: 108 Performed By: #### L 506.1000, L503.0105, L501.5200, L501.9520, L100.0500, L500.4050, L500.4100 #### [facility] [address] [place], [address] Urea nitrogen [Mass/Vol] 17 mg/dL Normal 7-18 [facility] Comment on above: Order Comment: 108 Performed By: #### L 506.1000, L503.0105, L501.5200, L501.9520, L100.0500, L500.4050, L500.4100 #### [facility] [address] [place], [address] Lipid Profileon 01-21-2024 Cholesterol [Mass/Vol] 132 mg/dL Normal 200 [facility] Comment on above: Order Comment: 108 Result Comment: <200 mg/dL Desirable 200-240 mg/dL Borderline >240 mg/dL High Risk Performed By: #### L 506.1000, L503.0105, L501.5200, L501.9520, L100.0500, L500.4050, L500.4100 #### [facility] [address] [place], [address] Cholesterol in HDL [Mass/Vol] 56 mg/dL Normal [facility] Comment on above: Order Comment: 108 Result Comment: The drugs N-Acetylcysteine and Metamizole may falsely depress this assay. Reference Range HDL <40 mg/dL Low HDL Cholesterol HDL >or= 60 mg/dL High HDL Cholesterol Performed By: #### L 506.1000, L503.0105, L501.5200, L501.9520, L100.0500, L500.4050, L500.4100 #### [facility] [address] [place], [address] Cholesterol in LDL [Mass/Vol] 67 mg/dL Normal 0-130 [facility] Comment on above: Order Comment: 108 Performed By: #### L 506.1000, L503.0105, L501.5200, L501.9520, L100.0500, L500.4050, L500.4100 #### [facility] [address] [place], [address] Cholesterol in VLDL [Mass/Vol] 9 mg/dL Normal 5-40 [facility] Comment on above: Order Comment: 108 Performed By: #### L 506.1000, L503.0105, L501.5200, L501.9520, L100.0500, L500.4050, L500.4100 #### [facility] [address] [place], [address] Triglyceride [Mass/Vol] 46 mg/dL Normal [facility] Comment on above: Order Comment: 108 Result Comment: The drugs N-Acetylcysteine and Metamizole may falsely depress this assay. Serum Triglycerides Reference Interval Normal <150 mg/dL Borderline high 150 - 199 mg/dL High 200 - 499 mg/dL Very High > or = 500 mg/dL Performed By: #### L 506.1000, L503.0105, L501.5200, L501.9520, L100.0500, L500.4050, L500.4100 #### [facility] [address] [place], [address] Magnesiumon 01-21-2024 Magnesium [Mass/Vol] 1.9 mg/dL Normal 1.6-2.6 [facility] Comment on above: Order Comment: 108 Performed By: #### L 506.1000, L503.0105, L501.5200, L501.9520, L100.0500, L500.4050, L500.4100 #### [facility] [address] [place], [address] Thyroid Stim Hormone (TSH)on 01-21-2024 TSH 0.811 uIU/mL Normal 0.358-3.740 [facility] Comment on above: Order Comment: 108 Performed By: #### L 506.1000, L503.0105, L501.5200, L501.9520, L100.0500, L500.4050, L500.4100 #### [facility] [address] [place], [place], [id number] Vitamin B12on 01-21-2024 Cobalamin (Vitamin B12) [Mass/Vol] 746 pg/mL Normal 211-911 [facility] Comment on above: Order Comment: 108 Performed By: #### L 506.1000, L503.0105, L501.5200, L501.9520, L100.0500, L500.4050, L500.4100 #### [facility] [address] [place], [address] Vitamin D,25 Hydroxyon 01-20 Vitamin D 25-OH 25.9 ng/mL Normal [facility] Comment on above: Order Comment: 108 Result Comment: Gloria min D 25(OH) Status Range Deficiency <20 ng/mL (50nmol/L) Insufficiency 20 - 30 ng/mL (50 - 75 nmol/L) Sufficiency 30 - 100 ng/mL (75 - 250 nmol/L) Toxicity >100 ng/mL (>250 nmol/L) Performed By: #### L 506.1000, L503.0105, L501.5200, L501.9520, L100.0500, L500.4050, L500.4100 #### [facility] [address] [place], [address] CBC + DIFFon 11-07-2023 Baso # 0.01 x10EE3/UL Normal 0.00 - 0.10 [facility] Comment on above: Performed By: #### 2 84002 #### [facility],[address] [place] [address] Basophils/100 WBC (Bld) 0.3 % Normal 0.0 - 2.0 [facility] Comment on above: Performed By: #### 2 98249 #### [facility],[address] [place] [address] CBC + DIFF Normal [facility] Comment on above: Result Comment: CBC- COMPLETE BLOOD COUNT Performed By: #### 2 43931 #### [facility],[address] [place] [address] EO # 0.09 x10EE3/UL Normal 0.00 - 0.50 [facility] Comment on above: Performed By: #### 2 17823 #### [facility],[address] [place] [address] Eosinophils/100 WBC (Bld) 2.5 % Normal 0.0 - 7.0 [facility] Comment on above: Performed By: #### 2 77550 #### [facility],[address] [place] [address] Erythrocyte distribution width (RBC) [Ratio] 14.4 % Normal 12.0 - 15.6 [facility] Comment on above: Performed By: #### 2 79563 #### [facility],[address] [place] [address] Hematocrit (Bld) [Volume fraction] 38.8 % Normal 34.0 - 46.0 [facility] Comment on above: Performed By: #### 2 13100 #### [facility],[address] [place] [address] Hemoglobin (Bld) [Mass/Vol] 12.7 g/dL Normal 12.0 - 16.0 [facility] Comment on above: Performed By: #### 2 91809 #### [facility],[address] [place] [address] Lymph # 0.83 x10EE3/UL Normal 0.80 - 2.80 [facility] Comment on above: Performed By: #### 2 03776 #### [facility],[address] [place], [place] [address] Lymphocytes/100 WBC (Bld) 22.4 % Normal 20.0 - 45.0 [facility] Comment on above: Performed By: #### 2 41849 #### [facility],[address] [place] [address] MANUAL DIFF N/A Normal [facility] Comment on above: Performed By: #### 2 09864 #### [facility],[address] [place], [place] [address] MCH (RBC) [Entitic mass] 26 pg Low 27 - 33 [facility] Comment on above: Performed By: #### 2 54285 #### [facility],[address] [place] [address] MCHC 33 X10 3 Normal 32 - 36 [facility] Comment on above: Performed By: #### 2 50003 #### [facility],[address] [place] [address] MCV (RBC) [Entitic vol] 79 fL Low 80 - 99 [facility] Comment on above: Performed By: #### 2 13106 #### [facility],[address] [place] [address] [place] # 0.45 x10EE3/UL Normal 0.20 - 1.00 [facility] Comment on above: Performed By: #### 2 69960 #### [facility],[address] [place] [address] MONOS % 12.2 % High 0.0 - 10.0 [facility] Comment on above: Performed By: #### 2 00121 #### [facility],[address] [place] [address] Morphology Alberto (Bld) [Interp] N/A Normal [facility] Comment on above: Performed By: #### 2 15612 #### [facility],[address] [place] [address] Neut # 2.33 x10EE3/UL Normal 1.50 - 7.10 [facility] Comment on above: Performed By: #### 2 15339 #### [place] [id number] Neutrophils/100 WBC (Bld) 62.7 % Normal 46.0 - 76.0 [facility] Comment on above: Performed By: #### 2 70809 #### [facility],[address] [place], [place] [id number] PLATELET 341 x10EE3/UL Normal 150 - 450 [facility] Comment on above: Performed By: #### 2 85909 #### [place] [address] Platelet mean volume (Bld) [Entitic vol] 8.1 fL Normal 6.6 - 10.5 [facility] Comment on above: Result Comment: AUTO MATED DIFFERENTIAL Performed By: #### 2 [id number] #### [facility],[address] [place] [address] 31266 RBC 4.93 x 10EE6/UL Normal 4.10 - 5.30 [facility] Comment on above: Performed By: #### 2 [id number] #### [facility],[address] [place] [address] 49363 WBC 3.7 x 10EE3/UL Low 4.5 - 10.8 [facility] Comment on above: Performed By: #### 2 10057 #### [facility],[address] [place], [place] [id number] CMP with eGFRon 11-07-2023 AGE 68 years Normal [facility] Comment on above: Performed By: #### 2 [id number] #### [facility],[address] [place] [address] 19034 Albumin [Mass/Vol] 3.6 g/dL Normal 3.4 - 5.0 [facility] Comment on above: Performed By: #### 2 [id number] #### [facility],[address] [place] [address] 85376 Albumin/Globulin [Mass ratio] 0.9 {ratio} Normal 0.9 - 1.6 [facility] Comment on above: Performed By: #### 2 [id number] #### [facility],[address] [place] [address] 71636 ALK PHOS 122 U/L High 46 - 116 [facility] Comment on above: Performed By: #### 2 [id number] #### [facility],[address] [place] [address] 49553 ALT [Catalytic activity/Vol] 16 U/L Normal 16 - 63 [facility] Comment on above: Performed By: #### 2 99868 #### [facility],[address] [place] [address] 24253 Anion gap [Moles/Vol] 9 mmol/L Low 10 - 20 [facility] Comment on above: Performed By: #### 2 [id number] #### [facility],[address] [place] [address] 85011 AST [Catalytic activity/Vol] 17 U/L Normal 13 - 39 [facility] Comment on above: Performed By: #### 2 11364 #### [facility],[address] [place] [address] 26488 B/C RATIO 21 ratio Normal 0 - 30 [facility] Comment on above: Performed By: #### 2 17895 #### [facility],[address] [place] [address] Bilirubin [Mass/Vol] 0.3 mg/dL Normal 0.2 - 1.0 [facility] Comment on above: Performed By: #### 2 59564 #### [facility],[address] [place] [address] 27377 Calcium [Mass/Vol] 8.7 mg/dL Normal 8.5 - 10.1 [facility] Comment on above: Performed By: #### 2 69698 #### [facility],[address] [place] [address] 80994 Chloride [Moles/Vol] 98 mmol/L Normal 98 - 107 [facility] Comment on above: Performed By: #### 2 84427 #### [facility],[address] [place], [place] [phone] CMP with eGFR Normal [facility] Comment on above: Result Comment: COMP REHENSIVE METABOLIC PANEL Performed By: #### 2 81219 #### [facility],[address] [place] [address] 14727 CO2 [Moles/Vol] 31.9 mmol/L Normal 21.0 - 32.0 [facility] Comment on above: Performed By: #### 2 63211 #### [facility],[address] [place] [address] 47021 Creatinine [Mass/Vol] 0.68 mg/dL Normal 0.55 - 1.02 [facility] Comment on above: Performed By: #### 2 11325 #### [facility],[address] [place] [address] 08981 GFR/1.73 sq M.predicted among non-blacks MDRD (S/P/Bld) [Vol rate/Area] mL/min/{1.73_m2} Normal 60 - 999 [facility] Comment on above: Performed By: #### 2 13472 #### [facility],[address] [place] [address] Result Comment: ACCO RDING TO THE NATIONAL KIDNEY DISEASE EDUCATION PROGRAM(NKDE), A NORMAL eGFR IS A VALUE GREATER THAN OR EQUAL TO 60 ML/MIN/1.73 SQ METERS. CHRONIC KIDNEY DISEASE: <60mL/MIN/1.73 SQ METERS KIDNEY FAILURE: <15mL/MIN/1.73 SQ METERS THIS TEST SHOULD ONLY BE USED FOR PATIENTS 18 YEARS OF AGE AND OLDER. Globulin (S) [Mass/Vol] 3.8 g/dL Normal 1.5 - 3.8 [facility] Comment on above: Performed By: #### 2 74253 #### [facility],[address] [place] [address] 42006 Glucose [Mass/Vol] 87 mg/dL Normal 74 - 106 [facility] Comment on above: Performed By: #### 2 83652 #### [facility],[address] [place] [address] 74212 Potassium [Moles/Vol] 4.0 mmol/L Normal 3.5 - 5.1 [facility] Comment on above: Performed By: #### 2 98282 #### [facility],[address] [place] [address] 22015 Protein [Mass/Vol] 7.4 g/dL Normal 6.4 - 8.2 [facility] Comment on above: Performed By: #### 2 92149 #### [facility],[address] [place] [address] 56351 Sodium [Moles/Vol] 135 mmol/L Low 136 - 145 [facility] Comment on above: Performed By: #### 2 43724 #### [facility],[address] [place] [address] 93434 Urea nitrogen [Mass/Vol] 14 mg/dL Normal 7 - 18 [facility] Comment on above: Performed By: #### 2 21981 #### [facility],[address] [place] [address] 72381 LIPID PROFILEon 11-07-2023 Cholesterol [Mass/Vol] 238 mg/dL Normal 0 - 240 [facility] Comment on above: Performed By: #### 2 91881 #### [facility],[address] [place] [address] 51257 Cholesterol in HDL [Mass/Vol] 72 mg/dL High 40 - 60 [facility] Comment on above: Performed By: #### 2 77742 #### [facility],[address] [place] [address] 34480 Cholesterol in LDL [Mass/Vol] 153 mg/dL High 0 - 129 [facility] Comment on above: Performed By: #### 2 96969 #### [facility],[address] [place] [address] 86497 Cholesterol.total/C holesterol in HDL [Mass ratio] 3.3 {ratio} Normal 0.0 - 5.0 [facility] Comment on above: Performed By: #### 2 56302 #### [facility],[address] [place] [address] 88246 Lipid 1996 panel Normal [facility] Comment on above: Result Comment: LIPI D PROFILE Performed By: #### 2 73035 #### [facility],[address] [place] [address] 09130 Triglyceride [Mass/Vol] 64 mg/dL Normal 0 - 150 [facility] Comment on above: Performed By: #### 2 40269 #### [facility],[address] [place] [address] 58666 Basophil percentageon 2021 Chloride [Moles/Vol] 101 mmol/L 98-107 [facility] Work Phone: Glucose [Mass/Vol] 85 mg/dL 74-106 [facility] Work Phone: Potassium [Moles/Vol] 3.9 mmol/L 3.5-5.1 [facility] Work Phone: Sodium [Moles/Vol] 135 mmol/L 136-145 [facility] Work Phone: Laboratory - Chemistry and C hemistry - challengeon 01-27-2022 CO2 [Moles/Vol] 28.0 mmol/L 21.0-32.0 [facility] Work Phone: Urea nitrogen/Creatinine [Mass ratio] 22.1 mg/mg 02-09 [facility] Work Phone: Sodium (U) [Moles/Vol] 39 mmol/L Not Establ. [facility] Work Phone: No Panel Informationon 01-27 Estimated GFR (MDRD) Amer 104 mL/min >60 [facility] Work Phone: Comment on above: GFR Calc Estimated GFR (MDRD) Non-Af Amer 86 mL/min >60 [facility] Work Phone: Comment on above: Non- GFR Calc Miscellaneous Test See comment [facility] Work Phone: Comment on above: TEST RESULT LIMITSOs molality 278 Low mOsmol/kg 280 - 301 TESTING PERFORMED AT [facility]. ORIGINAL REPORT ON FILE IN LAB CONTAINS ADDITIONAL TEST SITE INFORMATION. ___ Serum or plasma calcium tala urement (mass/volume)on 01-27-2022 Calcium [Mass/Vol] 8.7 mg/dL 8.5-10.1 [facility] Work Phone: Serum or plasma creatinine m easurement (mass/volume)on 01-27-2022 Creatinine [Mass/Vol] 0.72 mg/dL 0.55-1.02 [facility] Work Phone: Comment on above: The validity of the calculated GFR & GFRAA in patients over 70 years has not been determined. Clinical correlation is essential. Serum or plasma urea nitroge n measurement (mass/volume)on 01-27-2022 Urea nitrogen [Mass/Vol] 16 mg/dL 7-18 [facility] Work Phone: Thin prep Papanicolaou smear with manual screeningon 01-27-2022 Thin prep Papanicolaou smear with manual screening 6 5-15 [facility] Work Phone: Urine osmolality measurement on 01-27-2022 Osmolality (U) [Osmolality] 678 mOsm/KG >50 [facility] Work Phone: Comment on above: Normal Urine Referen ce Ranges Random: 50 - 1200 mOsm/kg H20 depending on fluid intake Random: >850 mOsm/kg after 12 hour fluid restriction 24 hour: ~300 - 900 mOsm/kg H2O Vital Signs Date Time Vital Sign Value Performing Clinician Faci lity 01-15-2022 14:40-0400 Body height 157.48 cm [facility] Work Phone: 01-15-2022 14:40-0400 Body mass index (BMI) [Ratio] 31 kg/m2 [facility] Work Phone: 01-15-2022 14:40-0400 Body temperature 97.9 [degF] [facility] Work Phone: 01-15-2022 14:40-0400 Body weight 77 kg [facility] Work Phone: 01-15-2022 14:40-0400 Diastolic blood pressure 93 mm[Hg] [facility] Work Phone: 01-15-2022 14:40-0400 Heart rate 104 /min [facility] Work Phone: 01-15-2022 14:40-0400 Respiratory rate 16 /min [facility] Work Phone: 01-15-2022 14:40-0400 SaO2% (BldA) [Mass fraction] 98 % [facility] Work Phone: 01-15-2022 14:40-0400 Systolic blood pressure 168 mm[Hg] [facility] Work Phone: Encounters Encounter Date Encounter Type Care Provider Facility Start: 11-17-2024 ambulatory Samanta Gudla OLS Facili ty:[facility] Start: 05-02-2024 End: 05-02-2024 ambulatory Samanta Gudla OLS Facility:[facility] Start: 04-14-2024 End: 04-14-2024 ambulatory Samanta Gudla OLS Facility:[facility] Start: 02-19-2024 End: 02-19-2024 ambulatory Samanta Gudla OLS Facility:[facility] Start: 01-29-2024 ambulatory Samanta Giovannidla OLS Facili ty:[facility] Start: 01-21-2024 End: 01-21-2024 ambulatory Samanta Giovannidla OLS Facility:[facility] Start: 11-07-2023 End: [facility]07[facility]: 01-27-2022 End: 01-27-2022 ambulatory [facility] Work Phone: Start: 01-27-2022 End: 01-27-[address] [facility] [place]: 01-15-2022 End: 01-15-2022 Emergency department patient visit [facility]Emergency Department Plan of Treatment Date Care Activity Detail Author Patient Education ED Anxiety Reaction [facility] Work Phone: Patient referral [facility] Work Phone: Payers Date Payer Category Payer Medicaid [id number] 2024 Self-pay 2024 Unknown [id number] Medicare MEDICARE PART A B [id number] Unknown [id number] 2.16.8 [id number] Unknown [id number] 2.16.8 [id number] Unknown [id number] 2.16.8 [id number] Unknown [id number] 2.16.8 [id number] Unknown [id number] 2.16.8 [id number] Unknown [id number] 2.16.8 [id number] Social History Date Type Detail Facility Start: 01-15-2022 End: 01-15-2022 Tobacco smoking status NHIS Unknown if ever smoked [facility] Work Phone: Start: 1955 Sex Assigned At Female [facility] Work Phone: Evaluation note Note Date & Type Note Facility Evaluation note No assessment information availa ble [facility] Work Phone: Hospital Discharge instructions Note Date & Type Note Facility Hospital Discharge instructions Additional Instructions Please no longer see the significant other who upset you. If you feel threatened please call 911. [facility] Work Phone: Chief Complaint and Reason for Visit Chief Complaint mental health Chief Complaint mental health LABWORK Advance Directives No Advanced Directives Records Found Advance Directive Response Recorded Date/ Time Living Will No January 15, 2022 2:56pm Power of [employer] Service Engineer No December 2:56pm Advance Directive Response Recorded Date/ Time Living Will No January 15, 2022 1:56pm Power of [employer] Service Engineer No December 1:56pm Summary Purpose Family History No Family History Records FoundNo Family History Records Found Additional Source Comments Goals (unrecognized section and content) Goals may be documented in a n alternate sectionGoals may be documented in an alternate section INFORMATION SOURCE (unrecogn ized section and content) DATE CREATED AUTHOR 11/11/2023 Jeremy Dueñas [facility] DATE CREATED AUTHOR NICHOLE TORREZ 11/17/2024 [facility] FOR RECORDS PERTAINING TO PATIENTS WHO ARE OR HAVE BEEN ENROLLED IN A CHEMICAL DEPENDENCY/SUBSTANCEABUSE PROGRAM, SOME INFORMATION MAY BE OMITTED. This clinical summary was aggregated from multiple sources. Caution should be exercised in using it in the provision of clinical care. This summary normalizes information from multiple sources, and as a consequence, information in this document may materially change the coding, format and clinical context of patient data. In addition, data may be omitted in some cases. CLINICAL DECISIONS SHOULD BE BASED ON THE PRIMARY CLINICAL RECORDS. [facility]. provides no warranty or guarantee of the accuracy or completeness of information in this document.
== END ==
LOC: OLS.SWAL 07:35
PROVIDERS: Visit Provider Internal Medicine
DX: I10 Essential (primary) hypertension (principal)
CPT/HCPCS: 36415; 85027

== ENCOUNTER → 2025-01-16 | Outpatient (REF) | payer MEDICARE, MEDICAID, SELFPAY ==
[2025-01-16 07:45] LABS: Mucous, Urine 0 SEEN /hpf (<or=2+); Red Blood Cells-Urine 0 SEEN /hpf (0-5); Squamous Epithelial Cells - UA 0 SEEN /hpf (5-10)
[2025-01-16 08:06] LABS: Hematocrit 27.4 % (37-47); Hemoglobin 7.9 g/dL (12.0-15.0); Mean Corp Hgb Conc 28.8 g/dL (32-36); Mean Corpuscular Volume 66.2 fL (81-99); Mean Platelet Vol. 9.9 fl (6.2-12.0); Platelet Count 346 K/mm3 (150-450); RBC Distribution Width CV 16.5 % (11.6-14.6); RBC Distribution Width SD 38.9 fl (35.1-43.9); Red Blood Count 4.14 M/mm3 (4.2-5.4); White Blood Count 3.5 K/mm3 (4.4-11.0)
[2025-01-16 08:18] LABS: Color, Urine YELLOW (Yellow); Glucose, Dipstick Normal (Normal); Ketone-Dipstick Negative (Negative); Leukocyte Esterase-Dipstick Negative /ul (Negative); Nitrite-Dipstick Negative (Negative); Occult Blood-Urine Negative /ul (Negative); Protein-Dipstick 15 mg/dl (Negative); Specific Gravity, Urine 1.015 (1.002-1.030); Urine Bilirubin Dipstick Negative (Negative)
[2025-01-16 08:28] LABS: Anion Gap 9 (5-15); BUN 11 mg/dL (4-19); BUN/Creat Ratio 18.5 RATIO (10-20); Calcium,Total 8.6 mg/dL (7.6-11.0); Carbon Dioxide 25.5 mmol/L (21.0-32.0); Chloride 102 mmol/L (98-108); Glucose 86 mg/dL (70-99); Magnesium 2.1 mg/dL (1.5-2.2); Potassium 4.0 mmol/L (3.3-5.1)
== END ==
LOC: OLS.SWAL 05:00
PROVIDERS: Visit Provider Internal Medicine
DX: N39.0 Urinary tract infection, site not specified (principal); I10 Essential (primary) hypertension; E87.1 Hypo-osmolality and hyponatremia
CPT/HCPCS: 36415; 80048; 81001; 83735; 85027; 87086; 87088

== ENCOUNTER → 2025-02-26 05:00 | Outpatient (REF) | payer MEDICARE, MEDICAID, SELFPAY ==
--- OUTSIDE RECORDS SUMMARY | 2025-02-26 04:35 | XMS RPT_ITS | CCD ---
Author Organization [facility] Care Team Providers Care Content Publisher Name Role Phone AMINATA BRANDON CNP Admitting Unavailable AMINATA BRANDON CNP Attending Unavailable AMINATA BRANDON CNP Primary Care Unavailable AMINATA BRANDON CNP Consulting Unavailable PROVIDER, UNKNOWN Consulting Unavailable PROVIDER, UNKNOWN Consulting Unavailable Care Physician, No Primary Primary Care Provider Unavailable Jeffry SHAHID, Dr. [place] Attending Provider Unavaila ble Care Physician, No Primary Primary Care Unava ilSamanta Leos Attending Unavailable Care Physician, No Primary Primary Care Unava ilSamanta Leos Attending Unavailable Care Physician, No Primary Primary Care Unava ilable Samanta Quevedo Attending Unavailable Care Physician, No Primary Primary Care Unava ilSamanta Leos Attending Unavailable Care Physician, No Primary Primary Care Unava ilSamanta Leos Attending Unavailable Medications Current Medications Medication Drug Class(es) Dates Sig (Normalized) Sig (Original) acetaminophen 650 mg oral tablet (3 sources) Start: 01-15-2022 acetaminophen Active 650 mg SL/PO NEEDED as needed for Fever January 15, 2022 12:00am amLODIPine 10 mg oral tablet (3 sources) Dihydropyridine Calcium Channel Justa Start: 01-15-2022 take 10 mg by mouth once daily amlodipine Active 10 mg SL/PO DAILY January 15, 2022 12:00am furosemide 20 mg oral tablet (3 sources) Loop Diuretic Start: 01-15-2022 take 20 mg by mouth once daily furosemide Active 20 mg SL/PO DAILY January 15, 2022 12:00am lisinopril 30 mg oral tablet (3 sources) Angiotensin Converting Enzyme Inhibitor Start: 01-15-2022 take 30 mg by mouth once daily lisinopril Active 30 mg SL/PO DAILY January 15, 2022 12:00am loratadine 10 mg oral tablet (3 sources) Start: 01-15-2022 take 10 mg by mouth once daily Claritin Active 10 mg SL/PO DAILY January 15, 2022 12:00am Normal saline (3 sources) Start: 01-15-2022 Saline Nasal Active 1 NMA NARES EVERY 4 HOURS NEEDED as needed for Allergy Symptoms January 15, 2022 12:00am Start: 01-15-2022 Saline Nasal A ctive 1 SPRAY NARES EVERY 4 HOURS NEEDED January 14, 2022 11:00pm Start: 01-15-2022 Saline Nasal A ctive 1 SPRAY NARES EVERY 4 HOURS NEEDED January 15, 2022 12:00am Problems Problem Classification Problem Date Documented Da te Episodic/Chronic Anxiety disorders (3 sources) Anxiety; Translations: [Anxiety disorder, unspecified] 01-23-2022 Chronic Disorders of lipid metabolism (1 source) Hyperlipidemia, unspecified; Translations: [Hyperlipidemia, unspecified] Onset: 11-07-2023 Chronic Essential hypertension (3 sources) Essential (primary) hypertension; Translations: [Essential (primary) hypertension] Onset: 11-07-2023 Chronic Fluid and electrolyte disorders (2 sources) Hypo-osmolality and hyponatremia; Translations: [Hypo-osmolality and hyponatremia] Onset: 11-07-2023 Episodic 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 Submit a new specimen if indicated. Normal [facility] Comment on above: Performed By: #### L 100.0500 #### [facility] [address] [place], [place], [id number] Basic Metabolic Profile (BMP )on 01-16-2025 BUN/CRE 18.5 RATIO Normal - [facility] Comment on above: Order Comment: 108 Performed By: #### L 100.0500 #### [facility] [address] [place], [address] Calcium [Mass/Vol] 8.6 mg/dL Normal 7.6-11.0 [facility] Comment on above: Order Comment: 108 Performed By: #### L 100.0500 #### [facility] [address] [place], [address] Chloride [Moles/Vol] 102 mmol/L Normal 98-108 [facility] Comment on above: Order Comment: 108 Performed By: #### L 100.0500 #### [facility] [address] [place], [address] CO2 [Moles/Vol] 25.5 mmol/L Normal 21.0-32.0 [facility] Comment on above: Order Comment: 108 Performed By: #### L 100.0500 #### [facility] [address] [place], [address] Creatinine [Mass/Vol] 0.59 mg/dL Low 0.70-1.20 [facility] Comment on above: Order Comment: 108 Performed By: #### L 100.0500 #### [facility] [address] [place], [address] GAP 9 Normal 5-15 [facility] Comment on above: Order Comment: 108 Performed By: #### L 100.0500 #### [facility] [address] [place], [address] GFR/1.73 sq M.predicted among non-blacks MDRD (S/P/Bld) [Vol rate/Area] 98 mL/min/{1.73_m2} Normal >60 [facility] Comment on above: Order Comment: 108 Result Comment: mL/m in/1.73m2 CKD-EPI Creatinine Equation (2020) Performed By: #### L 100.0500 #### [facility] [address] [place], [address] Glucose [Mass/Vol] 86 mg/dL Normal 70-99 [facility] Comment on above: Order Comment: 108 Performed By: #### L 100.0500 #### [facility] [address] [place], [address] Potassium [Moles/Vol] 4.0 mmol/L Normal 3.3-5.1 [facility] Comment on above: Order Comment: 108 Performed By: #### L 100.0500 #### [facility] [address] [place], [address] Sodium [Moles/Vol] 136 mmol/L Normal 133-145 [facility] Comment on above: Order Comment: 108 Performed By: #### L 100.0500 #### [facility] [address] [place], [address] Urea nitrogen [Mass/Vol] 11 mg/dL Normal 4-19 [facility] Comment on above: Order Comment: 108 Performed By: #### L 100.0500 #### [facility] [address] [place], [address] CBC-Complete Blood Cnt No Di ffon 01-16-2025 Erythrocyte distribution width (RBC) [Ratio] 16.5 % High 11.6-14.6 [facility] Comment on above: Order Comment: 108 Performed By: #### L 100.0500, L400.0001, L500.2500, M100.2200, L501.5200 #### [facility] [address] [place], [address] Hematocrit (Bld) [Volume fraction] 27.4 % Low 37-47 [facility] Comment on above: Order Comment: 108 Performed By: #### L 100.0500, L400.0001, L500.2500, M100.2200, L501.5200 #### [facility] [address] [place], [address] Hemoglobin (Bld) [Mass/Vol] 7.9 g/dL Low 12.0-15.0 [facility] Comment on above: Order Comment: 108 Performed By: #### L 100.0500, L400.0001, L500.2500, M100.2200, L501.5200 #### [facility] [address] [place], [address] MCH (RBC) [Entitic mass] 19.1 pg Low 27.0-32.0 [facility] Comment on above: Order Comment: 108 Performed By: #### L 100.0500, L400.0001, L500.2500, M100.2200, L501.5200 #### [facility] [address] [place], [address] MCHC (RBC) [Mass/Vol] 28.8 g/dL Low 32-36 [facility] Comment on above: Order Comment: 108 Performed By: #### L 100.0500, L400.0001, L500.2500, M100.2200, L501.5200 #### [facility] [address] [place], [address] MCV (RBC) [Entitic vol] 66.2 fL Low 81-99 [facility] Comment on above: Order Comment: 108 Performed By: #### L 100.0500, L400.0001, L500.2500, M100.2200, L501.5200 #### [facility] [address] [place], [address] Platelet mean volume (Bld) [Entitic vol] 9.9 fL Normal 6.2-12.0 [facility] Comment on above: Order Comment: 108 Performed By: #### L 100.0500, L400.0001, L500.2500, M100.2200, L501.5200 #### [facility] [address] [place], [address] Platelets (Bld) [#/Vol] 346 10*3/uL Normal 150-450 [facility] Comment on above: Order Comment: 108 Performed By: #### L 100.0500, L400.0001, L500.2500, M100.2200, L501.5200 #### [facility] [address] [place], [address] RBC (Bld) [#/Vol] 4.14 10*6/uL Low 4.2-5.4 [facility] Comment on above: Order Comment: 108 Performed By: #### L 100.0500, L400.0001, L500.2500, M100.2200, L501.5200 #### [facility] [address] [place], [address] RDW SD 38.9 fl Normal 35.1-43.9 [facility] Comment on above: Order Comment: 108 Performed By: #### L 100.0500, L400.0001, L500.2500, M100.2200, L501.5200 #### [facility] [address] [place], [address] WBC (Bld) [#/Vol] 3.5 10*3/uL Low 4.4-11.0 [facility] Comment on above: Order Comment: 108 Performed By: #### L 100.0500, L400.0001, L500.2500, M100.2200, L501.5200 #### [facility] [address] [place], [address] Magnesiumon 01-16-2025 Magnesium [Mass/Vol] 2.1 mg/dL Normal 1.5-2.2 [facility] Comment on above: Order Comment: 108 Performed By: #### L 100.0500 #### [facility] [address] [place], [address] Urinalysis, Completeon 01-16 BACTERIA 0 SEEN Normal None Seen [facility] Comment on above: Order Comment: CLEAN CATCH Performed By: #### L 100.0500, L400.0001, L500.2500, M100.2200, L501.5200 #### [facility] [address] [place], [address] EPI,SQUAMOUS 0 SEEN Normal 5-10 [facility] Comment on above: Order Comment: CLEAN CATCH Performed By: #### L 100.0500, L400.0001, L500.2500, M100.2200, L501.5200 #### [facility] [address] [place], [address] Mucus Ql (Urine sed) 0 SEEN Normal [facility] Comment on above: Order Comment: CLEAN CATCH Performed By: #### L 100.0500, L400.0001, L500.2500, M100.2200, L501.5200 #### [facility] [address] [place], [address] RBC 0 SEEN Normal 0-5 [facility] Comment on above: Order Comment: CLEAN CATCH Performed By: #### L 100.0500, L400.0001, L500.2500, M100.2200, L501.5200 #### [facility] [address] [place], [address] WBC 0 SEEN Normal 0-5 [facility] Comment on above: Order Comment: CLEAN CATCH Performed By: #### L 100.0500, L400.0001, L500.2500, M100.2200, L501.5200 #### [facility] [address] [place], [address] CBC-Complete Blood Cnt No Di ffon 11-24-2024 Erythrocyte distribution width (RBC) [Ratio] 15.6 % High 11.6-14.6 [facility] Comment on above: Performed By: #### L 100.0500 #### [facility] [address] [place], [address] Hematocrit (Bld) [Volume fraction] 30.1 % Low 37-47 [facility] Comment on above: Performed By: #### L 100.0500 #### [facility] [address] [place], [address] Hemoglobin (Bld) [Mass/Vol] 8.6 g/dL Low 12.0-15.0 [facility] Comment on above: Performed By: #### L 100.0500 #### [facility] [address] [place], [address] MCH (RBC) [Entitic mass] 20.0 pg Low 27.0-32.0 [facility] Comment on above: Performed By: #### L 100.0500 #### [facility] [address] [place], [address] MCHC (RBC) [Mass/Vol] 28.6 g/dL Low 32-36 [facility] Comment on above: Performed By: #### L 100.0500 #### [facility] [address] [place], [address] MCV (RBC) [Entitic vol] 70.2 fL Low 81-99 [facility] Comment on above: Performed By: #### L 100.0500 #### [facility] [address] [place], [address] Platelet mean volume (Bld) [Entitic vol] 10.2 fL Normal 6.2-12.0 [facility] Comment on above: Performed By: #### L 100.0500 #### [facility] [address] [place], [address] Platelets (Bld) [#/Vol] 389 10*3/uL Normal 150-450 [facility] Comment on above: Performed By: #### L 100.0500 #### [facility] [address] [place], [address] RBC (Bld) [#/Vol] 4.29 10*6/uL Normal 4.2-5.4 [facility] Comment on above: Performed By: #### L 100.0500 #### [facility] [address] [place], [address] RDW SD 38.7 fl Normal 35.1-43.9 [facility] Comment on above: Performed By: #### L 100.0500 #### [facility] [address] [place], [address] WBC (Bld) [#/Vol] 3.9 10*3/uL Low 4.4-11.0 [facility] Comment on above: Performed By: #### L 100.0500 #### [facility] [address] [place], [address] Erythrocyte distribution wid th ratioOrdered By: Samanta Teran on 11-24-2024 Erythrocyte distribution width (RBC) [Ratio] 15.6 % High 11.6-14.6 [facility] Erythrocyte distribution wid th standard deviationOrdered By: Samanta Teran on 11-24-2024 Erythrocyte distribution width (RBC) [Ratio] 38.7 fl 35.1-43.9 [facility] Hematocrit Auto (Bld) [Volum e fraction]Ordered By: Samanta Teran on 11-24-2024 Hematocrit (Bld) [Volume fraction] 30.1 % Low 37-47 [facility] Hemoglobin measurementOrdere d By: Samanta Teran on 11-24-2024 Hemoglobin (Bld) [Mass/Vol] 8.6 g/dL Low 12.0-15.0 [facility] MCV (mean corpuscular volume ) determinationOrdered By: Samanta Teran on 11-24-2024 MCV (RBC) [Entitic vol] 70.2 fL Low 81-99 [facility] Mean corpuscular hemoglobin (MCH) determinationOrdered By: Samanta Teran on 11-24-2024 MCH (RBC) [Entitic mass] 20.0 pg Low 27.0-32.0 [facility] Mean corpuscular hemoglobin concentration (MCHC) determinationOrdered By: Samanta Teran on 11-24-2024 MCHC (RBC) [Mass/Vol] 28.6 g/dL Low 32-36 [facility] Mean platelet volume determi nationOrdered By: Samanta Teran on 11-24-2024 Platelet mean volume (Bld) [Entitic vol] 10.2 fL 6.2-12.0 [facility] Platelet countOrdered By: Sheng Teran on 11-24-2024 Platelets (Bld) [#/Vol] 389 10*3/uL 150-450 [facility] RBC Auto (Bld) [#/Vol]Ordere d By: Samanta Teran on 11-24-2024 RBC (Bld) [#/Vol] 4.29 10*6/uL 4.2-5.4 [facility] White blood cell (WBC) count Ordered By: Samanta Trean on 11-24-2024 WBC (Bld) [#/Vol] 3.9 10*3/uL Low 4.4-11.0 [facility] Anion gap in Serum or Plasma Ordered By: Samanta Teran on 11-17-2024 Anion gap [Moles/Vol] 10 mmol/L 5-15 [facility] BUN/creatinine ratioOrdered By: Samanta Teran on 11-17-2024 Urea nitrogen/Creatinine [Mass ratio] 20.7 mg/mg High 10-20 [facility] Bilirubin, totalOrdered By: Samanta Teran on 11-17-2024 Bilirubin [Mass/Vol] 0.21 mg/dL 0.00-1.30 [facility] CBC-Complete Blood Cnt No Di ffon 11-17-2024 Erythrocyte distribution width (RBC) [Ratio] 15.3 % High 11.6-14.6 [facility] Comment on above: Order Comment: 108 Performed By: #### L 100.0500, L506.1001, L500.4050, L500.4100, L501.9520 #### [facility] [address] [place], [address] Hematocrit (Bld) [Volume fraction] 30.9 % Low 37-47 [facility] Comment on above: Order Comment: 108 Performed By: #### L 100.0500, L506.1001, L500.4050, L500.4100, L501.9520 #### [facility] [address] [place], [address] Hemoglobin (Bld) [Mass/Vol] 9.0 g/dL Low 12.0-15.0 [facility] Comment on above: Order Comment: 108 Performed By: #### L 100.0500, L506.1001, L500.4050, L500.4100, L501.9520 #### [facility] [address] [place], [address] MCH (RBC) [Entitic mass] 20.5 pg Low 27.0-32.0 [facility] Comment on above: Order Comment: 108 Performed By: #### L 100.0500, L506.1001, L500.4050, L500.4100, L501.9520 #### [facility] [address] [place], [address] MCHC (RBC) [Mass/Vol] 29.1 g/dL Low 32-36 [facility] Comment on above: Order Comment: 108 Performed By: #### L 100.0500, L506.1001, L500.4050, L500.4100, L501.9520 #### [facility] [address] [place], [address] MCV (RBC) [Entitic vol] 70.5 fL Low 81-99 [facility] Comment on above: Order Comment: 108 Performed By: #### L 100.0500, L506.1001, L500.4050, L500.4100, L501.9520 #### [facility] [address] [place], [address] Platelet mean volume (Bld) [Entitic vol] 10.2 fL Normal 6.2-12.0 [facility] Comment on above: Order Comment: 108 Performed By: #### L 100.0500, L506.1001, L500.4050, L500.4100, L501.9520 #### [facility] [address] [place], [address] Platelets (Bld) [#/Vol] 379 10*3/uL Normal 150-450 [facility] Comment on above: Order Comment: 108 Performed By: #### L 100.0500, L506.1001, L500.4050, L500.4100, L501.9520 #### [facility] [address] [place], [address] RBC (Bld) [#/Vol] 4.38 10*6/uL Normal 4.2-5.4 [facility] Comment on above: Order Comment: 108 Performed By: #### L 100.0500, L506.1001, L500.4050, L500.4100, L501.9520 #### [facility] [address] [place], [address] RDW SD 38.5 fl Normal 35.1-43.9 [facility] Comment on above: Order Comment: 108 Performed By: #### L 100.0500, L506.1001, L500.4050, L500.4100, L501.9520 #### [facility] [address] [place], [address] WBC (Bld) [#/Vol] 3.8 10*3/uL Low 4.4-11.0 [facility] Comment on above: Order Comment: 108 Performed By: #### L 100.0500, L506.1001, L500.4050, L500.4100, L501.9520 #### [facility] [address] [place], [address] Calculated very low density lipoprotein (VLDL) cholesterol measurementOrdered By: Samanta Teran on 11-17-2024 Calculated very low density lipoprotein (VLDL) cholesterol measurement 15 mg/dL 5-40 [facility] Carbon dioxide, total [Moles /volume] in Central venous bloodOrdered By: Samanta Teran on 11-17-2024 CO2 [Moles/Vol] 25.5 mmol/L 21.0-32.0 [facility] Chloride assayOrdered By: Sheng Teran on 11-17-2024 Chloride [Moles/Vol] 99 mmol/L 98-108 [facility] Comprehensive Metabolic Prof ilon 11-17-2024 Albumin [Mass/Vol] 4.0 g/dL Normal 3.4-4.8 [facility] Comment on above: Order Comment: 108 Performed By: #### L 100.0500, L506.1001, L500.4050, L500.4100, L501.9520 #### [facility] [address] [place], [address] Albumin/Globulin [Mass ratio] 1.5 {ratio} Normal 0.9-2.4 [facility] Comment on above: Order Comment: 108 Performed By: #### L 100.0500, L506.1001, L500.4050, L500.4100, L501.9520 #### [facility] [address] [place], [address] ALK PHOS 104 U/L Normal 35-104 [facility] Comment on above: Order Comment: 108 Performed By: #### L 100.0500, L506.1001, L500.4050, L500.4100, L501.9520 #### [facility] [address] [place], [address] ALT [Catalytic activity/Vol] 9 U/L Normal <=34 [facility] Comment on above: Order Comment: 108 Performed By: #### L 100.0500, L506.1001, L500.4050, L500.4100, L501.9520 #### [facility] [address] [place], [address] AST [Catalytic activity/Vol] 15 U/L Normal <=31 [facility] Comment on above: Order Comment: 108 Performed By: #### L 100.0500, L506.1001, L500.4050, L500.4100, L501.9520 #### [facility] [address] [place], [address] Bilirubin [Mass/Vol] 0.21 mg/dL Normal 0.00-1.30 [facility] Comment on above: Order Comment: 108 Performed By: #### L 100.0500, L506.1001, L500.4050, L500.4100, L501.9520 #### [facility] [address] [place], [address] BUN/CRE 20.7 RATIO High 10-20 [facility] Comment on above: Order Comment: 108 Performed By: #### L 100.0500, L506.1001, L500.4050, L500.4100, L501.9520 #### [facility] [address] [place] [place], [address] Calcium [Mass/Vol] 9.2 mg/dL Normal 7.6-11.0 [facility] Comment on above: Order Comment: 108 Performed By: #### L 100.0500, L506.1001, L500.4050, L500.4100, L501.9520 #### [facility] [address] [place], [address] Chloride [Moles/Vol] 99 mmol/L Normal 98-108 [facility] Comment on above: Order Comment: 108 Performed By: #### L 100.0500, L506.1001, L500.4050, L500.4100, L501.9520 #### [facility] [address] [place], [address] CO2 [Moles/Vol] 25.5 mmol/L Normal 21.0-32.0 [facility] Comment on above: Order Comment: 108 Performed By: #### L 100.0500, L506.1001, L500.4050, L500.4100, L501.9520 #### [facility] [address] [place], [address] Creatinine [Mass/Vol] 0.62 mg/dL Low 0.70-1.20 [facility] Comment on above: Order Comment: 108 Performed By: #### L 100.0500, L506.1001, L500.4050, L500.4100, L501.9520 #### [facility] [address] [place], [address] GAP 10 Normal 5-15 [facility] Comment on above: Order Comment: 108 Performed By: #### L 100.0500, L506.1001, L500.4050, L500.4100, L501.9520 #### [facility] [address] [place], [address] GFR/1.73 sq M.predicted among non-blacks MDRD (S/P/Bld) [Vol rate/Area] 97 mL/min/{1.73_m2} Normal >60 [facility] Comment on above: Order Comment: 108 Result Comment: mL/m in/1.73m2 CKD-EPI Creatinine Equation (2020) Performed By: #### L 100.0500, L506.1001, L500.4050, L500.4100, L501.9520 #### [facility] [address] [place], [address] Globulin (S) [Mass/Vol] 2.6 g/dL Normal 2.2-4.2 [facility] Comment on above: Order Comment: 108 Performed By: #### L 100.0500, L506.1001, L500.4050, L500.4100, L501.9520 #### [facility] [address] [place], [address] Glucose [Mass/Vol] 91 mg/dL Normal 70-99 [facility] Comment on above: Order Comment: 108 Performed By: #### L 100.0500, L506.1001, L500.4050, L500.4100, L501.9520 #### [facility] [address] [place], [address] Potassium [Moles/Vol] 4.4 mmol/L Normal 3.3-5.1 [facility] Comment on above: Order Comment: 108 Performed By: #### L 100.0500, L506.1001, L500.4050, L500.4100, L501.9520 #### [facility] [address] [place], [address] Sodium [Moles/Vol] 135 mmol/L Normal 133-145 [facility] Comment on above: Order Comment: 108 Performed By: #### L 100.0500, L506.1001, L500.4050, L500.4100, L501.9520 #### [facility] [address] [place], [address] T PROT 6.6 g/dL Normal 5.9-8.4 [facility] Comment on above: Order Comment: 108 Performed By: #### L 100.0500, L506.1001, L500.4050, L500.4100, L501.9520 #### [facility] [address] [place], [address] Urea nitrogen [Mass/Vol] 13 mg/dL Normal 4-19 [facility] Comment on above: Order Comment: 108 Performed By: #### L 100.0500, L506.1001, L500.4050, L500.4100, L501.9520 #### [facility] [address] [place], [address] Erythrocyte distribution wid th ratioOrdered By: Samanta Teran on 11-17-2024 Erythrocyte distribution width (RBC) [Ratio] 15.3 % High 11.6-14.6 [facility] Erythrocyte distribution wid th standard deviationOrdered By: Samanta Teran on 11-17-2024 Erythrocyte distribution width (RBC) [Ratio] 38.5 fl 35.1-43.9 [facility] Glomerular filtration rate ( GFR) estimation/1.73 sq m using serum, plasma, or whole bOrdered By: Samanta Teran on 11-17-2024 GFR/1.73 sq M.predicted among non-blacks MDRD (S/P/Bld) [Vol rate/Area] 97 mL/min/{1.73_m2} >60 [facility] Comment on above: mL/min/1.73m2 CKD-EP I Creatinine Equation (2020) Hematocrit Auto (Bld) [Volum e fraction]Ordered By: Samanta Teran on 11-17-2024 Hematocrit (Bld) [Volume fraction] 30.9 % Low 37-47 [facility] Hemoglobin measurementOrdere d By: Samanta Teran on 11-17-2024 Hemoglobin (Bld) [Mass/Vol] 9.0 g/dL Low 12.0-15.0 [facility] LDL calc ser/plasOrdered By: Samanta Teran on 11-17-2024 Cholesterol in LDL [Mass/Vol] 77 mg/dL [facility] Comment on above: Xwljdnfgbp=645-055 m g/dL & Higher Mhzc=291 mg/dL or greaterFriedwald Equation for LDL-C Laboratory - Chemistry and C hemistry - challengeOrdered By: Samanta Teran on 11-17-2024 AST [Catalytic activity/Vol] 15 U/L <32 [facility] Lipid Profileon 11-17-2024 CHOL:HDL 2.44 Normal [facility] Comment on above: Order Comment: 108 Performed By: #### L 100.0500, L506.1001, L500.4050, L500.4100, L501.9520 #### [facility] [address] [place], [address] Cholesterol [Mass/Vol] 157 mg/dL Normal <=[address] [facility] Comment on above: Order Comment: 108 Result Comment: Chol esterol level, Desirable <200 mg/dL Borderline high cholesterol 200-239 mg/dL High cholesterol >=240 mg/dL Recommendations of the NCEP Adult Treatment Panel for the following risk-cutoff thresholds for the [place]alt[place] population. Performed By: #### L 100.0500, L506.1001, L500.4050, L500.4100, L501.9520 #### [facility] [address] [place], [address] Cholesterol in HDL [Mass/Vol] 64 mg/dL Normal [facility] Comment on above: Order Comment: 108 Result Comment: Layne onal Cholesterol Education Program (NCEP) guidelines: <40 mg/dL: Low HDL-cholesterol (major risk factor for CHD) >= 60 mg/dL: High HDL-cholesterol (negative risk factor for CHD) HDL-cholesterol is affected by a number of factors, e.g. smoking, exercise, hormones, sex and age. Performed By: #### L 100.0500, L506.1001, L500.4050, L500.4100, L501.9520 #### [facility] [address] [place], [address] Cholesterol in LDL [Mass/Vol] 77 mg/dL Normal [facility] Comment on above: Order Comment: 108 Result Comment: Bord tynabz=598-699 mg/dL Higher Mfev=596 mg/dL or greater Friedwald Equation for LDL-C Performed By: #### L 100.0500, L506.1001, L500.4050, L500.4100, L501.9520 #### [facility] [address] [place], [address] Cholesterol in VLDL [Mass/Vol] 15 mg/dL Normal 5-40 [facility] Comment on above: Order Comment: 108 Performed By: #### L 100.0500, L506.1001, L500.4050, L500.4100, L501.9520 #### [facility] [address] [place], [place], [address] Triglyceride [Mass/Vol] 76 mg/dL Normal [facility] Comment on above: Order Comment: 108 Result Comment: The drugs N-Acetylcysteine and Metamizole may falsely depress this assay. Normal range: <150 mg/dL Borderline High: 150-199 mg/dL High: 200-499 mg/dL Very High: >500 mg/dL Performed By: #### L 100.0500, L506.1001, L500.4050, L500.4100, L501.9520 #### [facility] [address] [place], [place], [id number] MCV (mean corpuscular volume ) determinationOrdered By: Samanta Teran on 11-17-2024 MCV (RBC) [Entitic vol] 70.5 fL Low 81-99 [facility] Mean corpuscular hemoglobin (MCH) determinationOrdered By: Samanta Teran on 11-17-2024 MCH (RBC) [Entitic mass] 20.5 pg Low 27.0-32.0 [facility] Mean corpuscular hemoglobin concentration (MCHC) determinationOrdered By: Samanta Teran on 11-17-2024 MCHC (RBC) [Mass/Vol] 29.1 g/dL Low 32-36 [facility] Mean platelet volume determi nationOrdered By: Samanta Teran on 11-17-2024 Platelet mean volume (Bld) [Entitic vol] 10.2 fL 6.2-12.0 [facility] Platelet countOrdered By: Sheng Teran on 11-17-2024 Platelets (Bld) [#/Vol] 379 10*3/uL 150-450 [facility] Potassium measurement (mass/ volume)Ordered By: Samanta Teran on 11-17-2024 Potassium (Unsp spec) [Mass/Vol] 4.4 mmol/L 3.3-5.1 [facility] RBC Auto (Bld) [#/Vol]Ordere d By: Samanta Teran on 11-17-2024 RBC (Bld) [#/Vol] 4.38 10*6/uL 4.2-5.4 [facility] total cholesterol/ high density lipoprotein (HDL) cholesterol ratioOrdered By: Samanta Teran on 11-17-2024 Cholesterol.total/Choles terol in HDL [Mass ratio] 2.44 {ratio} [facility] Serum creatinine measurement (mass/volume)Ordered By: Samanta Teran on 11-17-2024 Creatinine [Mass/Vol] 0.62 mg/dL Low 0.70-1.20 [facility] Serum globulin measurementOr dered By: Samanta Teran on 11-17-2024 Globulin (S) [Mass/Vol] 2.6 g/dL 2.2-4.2 [facility] Serum glucose measurement (m ass/volume)Ordered By: Samanta Teran on 11-17-2024 Glucose [Mass/Vol] 91 mg/dL 70-99 [facility] Serum or plasma alanine bateman otransferase (ALT) measurementOrdered By: Samanta Teran on 11-17-2024 ALT [Catalytic activity/Vol] 9 U/L <35 [facility] Serum or plasma albumin tala urement (mass/volume)Ordered By: Samanta Teran on 11-17-2024 Albumin [Mass/Vol] 4.0 g/dL 3.4-4.8 [facility] Serum or plasma albumin/glob ulin mass ratioOrdered By: Samanta Teran on 11-17-2024 Albumin/Globulin [Mass ratio] 1.5 {ratio} 0.9-2.4 [facility] Serum or plasma alkaline leslie sphatase measurementOrdered By: Samanta Teran on 11-17-2024 ALP [Catalytic activity/Vol] 104 U/L 35-104 [facility] Serum or plasma calcium tala urement (mass/volume)Ordered By: Samanta Teran on 11-17-2024 Calcium [Mass/Vol] 9.2 mg/dL 7.6-11.0 [facility] Serum or plasma cholesterol in HDL measurement (mass/volume)Ordered By: Samanta Teran on 11-17-2024 Cholesterol in HDL [Mass/Vol] 64 mg/dL >40 [facility] Comment on above: National Cholesterol Education Program (NCEP) guidelines:<40 mg/dL: Low HDL-cholesterol (major risk factor for CHD)>= 60 mg/dL: High HDL-cholesterol (negative risk factor for CHD)HDL-cholesterol is affected by a number of factors, e.g. smoking, exercise, hormones, sex and age. Serum or plasma cholesterol measurement (mass/volume)Ordered By: Samanta Teran on 11-17-2024 Cholesterol [Mass/Vol] 157 mg/dL <[address] [facility] Comment on above: Cholesterol level, D esirable <200 mg/dLBorderline high cholesterol 200-239 mg/dLHigh cholesterol >=240 mg/dLRecommendations of the NCEP Adult Treatment Panel for the following risk-cutoff thresholds for the [place] population. Serum or plasma urea nitroge n measurement (mass/volume)Ordered By: Samanta Teran on 11-17-2024 Urea nitrogen [Mass/Vol] 13 mg/dL 4-19 [facility] Sodium levelOrdered By: Enedelia Teran on 11-17-2024 Sodium [Moles/Vol] 135 mmol/L 133-145 [facility] TSH DL <= 0.005 mIU/L QnOrde red By: Samanta Teran on 11-17-2024 TSH Qn 1.870 uIU/mL 0.300-4.200 [facility] Thyroid Stim Hormone (TSH)on 11-17-2024 TSH 1.870 uIU/mL Normal 0.300-4.200 [facility] Comment on above: Order Comment: 108 Performed By: #### L 100.0500, L506.1001, L500.4050, L500.4100, L501.9520 #### [facility] [address] [place], [address] Total proteinOrdered By: Myrna Teran on 11-17-2024 Protein [Mass/Vol] 6.6 g/dL 5.9-8.4 [facility] Triglycerides measurementOrd ered By: Samanta Teran on 11-17-2024 Triglyceride [Mass/Vol] 76 mg/dL <199 [facility] Comment on above: The drugs N-Acetylcy steine and Metamizole may falsely depress this assay. Normal range: <150 mg/dLBorderline High: 150-199 mg/dLHigh: 200-499 mg/dLVery High: >500 mg/dL Vitamin D,25 Hydroxyon 11-17 Vitamin D 25-OH 32.3 ng/mL Normal 30-100 [facility] Comment on above: Order Comment: 108 Result Comment: Gloria min D Status Deficiency: <20 ng/mL (50nmol/L) Insufficiency: 20-30 ng/mL (50-75 nmol/L) Sufficiency: 30-100 ng/mL (75-250 nmol/L) Toxicity: >100 ng/mL (>250 nmol/L) Performed By: #### L 100.0500, L506.1001, L500.4050, L500.4100, L501.9520 #### [facility] [address] [place], [address] White blood cell (WBC) count Ordered By: Samanta Teran on 11-17-2024 WBC (Bld) [#/Vol] 3.8 10*3/uL Low 4.4-11.0 [facility] Basic Metabolic Profile (BMP )on 05-02-2024 BUN/CRE 28.0 RATIO High 10-20 [facility] Comment on above: Order Comment: 108 Performed By: #### L 500.2500 #### [facility] [address] [place], [address] CA,Total 8.9 mg/dL Normal 8.5-10.1 [facility] Comment on above: Order Comment: 108 Performed By: #### L 500.2500 #### [facility] [address] [place], [address] Chloride [Moles/Vol] 98 mmol/L Normal 98-107 [facility] Comment on above: Order Comment: 108 Performed By: #### L 500.2500 #### [facility] [address] [place], [address] CO2 [Moles/Vol] 28.0 mmol/L Normal 21.0-32.0 [facility] Comment on above: Order Comment: 108 Performed By: #### L 500.2500 #### [facility] [address] [place], [address] Creatinine [Mass/Vol] 0.64 mg/dL Normal 0.55-1.02 [facility] Comment on above: Order Comment: 108 Result Comment: The validity of the calculated GFR GFRAA in patients over 70 years has not been determined. Clinical correlation is essential. Performed By: #### L 500.2500 #### [facility] [address] [place], [address] EST GFR - AA 118 mL/min Normal >60 [facility] Comment on above: Order Comment: 108 Result Comment: Afri can Maltese GFR Calc Performed By: #### L 500.2500 #### [facility] [address] [place], [address] GAP 3 Low 5-15 [facility] Comment on above: Order Comment: 108 Performed By: #### L 500.2500 #### [facility] [address] [place], [address] GFR/1.73 sq M.predicted among non-blacks MDRD (S/P/Bld) [Vol rate/Area] 98 mL/min/{1.73_m2} Normal >60 [facility] Comment on above: Order Comment: 108 Result Comment: Non- GFR Calc Performed By: #### L 500.2500 #### [facility] [address] [place], [address] Glucose [Mass/Vol] 99 mg/dL Normal 74-106 [facility] Comment on above: Order Comment: 108 Performed By: #### L 500.2500 #### [facility] [address] [place], [address] Potassium [Moles/Vol] 4.9 mmol/L Normal 3.5-5.1 [facility] Comment on above: Order Comment: 108 Performed By: #### L 500.2500 #### [facility] [address] [place], [address] Sodium [Moles/Vol] 129 mmol/L Low 136-145 [facility] Comment on above: Order Comment: 108 Performed By: #### L 500.2500 #### [facility] [address] [place], [address] Urea nitrogen [Mass/Vol] 18 mg/dL Normal 7-18 [facility] Comment on above: Order Comment: 108 Performed By: #### L 500.2500 #### [facility] [address] [place], [address] Basic Metabolic Profile (BMP )on 04-14-2024 BUN/CRE 21.4 RATIO High 10-20 [facility] Comment on above: Order Comment: 108 Performed By: #### L 500.2500 #### [facility] [address] [place], [address] CA,Total 8.9 mg/dL Normal 8.5-10.1 [facility] Comment on above: Order Comment: 108 Performed By: #### L 500.2500 #### [facility] [address] [place], [address] Chloride [Moles/Vol] 94 mmol/L Low 98-107 [facility] Comment on above: Order Comment: 108 Performed By: #### L 500.2500 #### [facility] [address] [place], [address] CO2 [Moles/Vol] 27.0 mmol/L Normal 21.0-32.0 [facility] Comment on above: Order Comment: 108 Performed By: #### L 500.2500 #### [facility] [address] [place], [address] Creatinine [Mass/Vol] 0.70 mg/dL Normal 0.55-1.02 [facility] Comment on above: Order Comment: 108 Result Comment: The validity of the calculated GFR GFRAA in patients over 70 years has not been determined. Clinical correlation is essential. Performed By: #### L 500.2500 #### [facility] [address] [place], [address] EST GFR - AA 107 mL/min Normal >60 [facility] Comment on above: Order Comment: 108 Result Comment: Afri can Maltese GFR Calc Performed By: #### L 500.2500 #### [facility] [address] [place], [address] GAP 7 Normal 5-15 [facility] Comment on above: Order Comment: 108 Performed By: #### L 500.2500 #### [facility] [address] [place], [address] GFR/1.73 sq M.predicted among non-blacks MDRD (S/P/Bld) [Vol rate/Area] 88 mL/min/{1.73_m2} Normal >60 [facility] Comment on above: Order Comment: 108 Result Comment: Non- GFR Calc Performed By: #### L 500.2500 #### [facility] [address] [place], [address] Glucose [Mass/Vol] 88 mg/dL Normal 74-106 [facility] Comment on above: Order Comment: 108 Performed By: #### L 500.2500 #### [facility] [address] [place], [address] Potassium [Moles/Vol] 4.6 mmol/L Normal 3.5-5.1 [facility] Comment on above: Order Comment: 108 Performed By: #### L 500.2500 #### [facility] [address] [place], [address] Sodium [Moles/Vol] 129 mmol/L Low 136-145 [facility] Comment on above: Order Comment: 108 Performed By: #### L 500.2500 #### [facility] [address] [place], [place], [id number] Urea nitrogen [Mass/Vol] 15 mg/dL Normal 7-18 [facility] Comment on above: Order Comment: 108 Performed By: #### L 500.2500 #### [facility] [address] [place], [place], [id number] CBC + DIFFon 11-07-2023 Baso # 0.01 x10EE3/UL Normal 0.00 - 0.10 [facility] Comment on above: Performed By: #### 2 [id number] #### [facility] [place],[address] [place] [address] Basophils/100 WBC (Bld) 0.3 % Normal 0.0 - 2.0 [facility] Comment on above: Performed By: #### 2 21041 #### [facility] [place],[address] [place] [address] CBC + DIFF Normal [facility] Comment on above: Result Comment: CBC- COMPLETE BLOOD COUNT Performed By: #### 2 [id number] #### [facility] [place],[address] [place] [address] EO # 0.09 x10EE3/UL Normal 0.00 - 0.50 [facility] Comment on above: Performed By: #### 2 93491 #### [facility] [place],[address] [place] [address] Eosinophils/100 WBC (Bld) 2.5 % Normal 0.0 - 7.0 [facility] Comment on above: Performed By: #### 2 71860 #### [facility] [place],[address] [place] [address] Erythrocyte distribution width (RBC) [Ratio] 14.4 % Normal 12.0 - 15.6 [facility] Comment on above: Performed By: #### 2 65596 #### [facility] [place],[address] [place] [address] Hematocrit (Bld) [Volume fraction] 38.8 % Normal 34.0 - 46.0 [facility] Comment on above: Performed By: #### 2 54208 #### [facility] [place],[address] [place] [address] Hemoglobin (Bld) [Mass/Vol] 12.7 g/dL Normal 12.0 - 16.0 [facility] Comment on above: Performed By: #### 2 65321 #### [facility] [place],[address] [place] [address] Lymph # 0.83 x10EE3/UL Normal 0.80 - 2.80 [facility] Comment on above: Performed By: #### 2 69087 #### [place] [address] Lymphocytes/100 WBC (Bld) 22.4 % Normal 20.0 - 45.0 [facility] Comment on above: Performed By: #### 2 89549 #### [facility] [place],[address] [place], [place] [id number] MANUAL DIFF N/A Normal [facility] Comment on above: Performed By: #### 2 89368 #### [facility] [place],[address] [place] [address] MCH (RBC) [Entitic mass] 26 pg Low 27 - 33 [facility] Comment on above: Performed By: #### 2 14157 #### [place] [address] MCHC 33 X10 3 Normal 32 - 36 [facility] Comment on above: Performed By: #### 2 84824 #### [facility] [place],[address] [place] [address] MCV (RBC) [Entitic vol] 79 fL Low 80 - 99 [facility] Comment on above: Performed By: #### 2 47438 #### [facility] [place],[address] [place] [address] Webb # 0.45 x10EE3/UL Normal 0.20 - 1.00 [facility] Comment on above: Performed By: #### 2 27983 #### [facility] [place],[address] [place] [address] MONOS % 12.2 % High 0.0 - 10.0 [facility] Comment on above: Performed By: #### 2 57679 #### [facility] [place],[address] [place] [address] Morphology Alberto (Bld) [Interp] N/A Normal [facility] Comment on above: Performed By: #### 2 80892 #### [facility] [place],[address] [place] [address] Neut # 2.33 x10EE3/UL Normal 1.50 - 7.10 [facility] Comment on above: Performed By: #### 2 63252 #### [facility] [place],[address] [place] [address] Neutrophils/100 WBC (Bld) 62.7 % Normal 46.0 - 76.0 [facility] Comment on above: Performed By: #### 2 66612 #### [facility] [place],[address] [place] [address] PLATELET 341 x10EE3/UL Normal 150 - 450 [facility] Comment on above: Performed By: #### 2 97048 #### [facility] [place],[address] [place] [address] Platelet mean volume (Bld) [Entitic vol] 8.1 fL Normal 6.6 - 10.5 [facility] Comment on above: Result Comment: AUTO MATED DIFFERENTIAL Performed By: #### 2 21390 #### [facility] [place],[address] [place] [address] RBC 4.93 x 10EE6/UL Normal 4.10 - 5.30 [facility] Comment on above: Performed By: #### 2 76299 #### [facility] [place],[address] [place] [address] WBC 3.7 x 10EE3/UL Low 4.5 - 10.8 [facility] Comment on above: Performed By: #### 2 38481 #### [facility] [place],[address] [place] [address] CMP with eGFRon 11-07-2023 AGE 68 years Normal [facility] Comment on above: Performed By: #### 2 03032 #### [facility] [place],[address] [place], [place] [phone] Albumin [Mass/Vol] 3.6 g/dL Normal 3.4 - 5.0 [facility] Comment on above: Performed By: #### 2 69013 #### [facility] [place],[address] [place] [address] Albumin/Globulin [Mass ratio] 0.9 {ratio} Normal 0.9 - 1.6 [facility] Comment on above: Performed By: #### 2 50395 #### [facility] [place],[address] [place] [address] ALK PHOS 122 U/L High 46 - 116 [facility] Comment on above: Performed By: #### 2 60701 #### [facility] [place],[address] [place] [address]99 ALT [Catalytic activity/Vol] 16 U/L Normal 16 - 63 [facility] Comment on above: Performed By: #### 2 94553 #### [facility] [place],[address] [place] [address] Anion gap [Moles/Vol] 9 mmol/L Low 10 - 20 [facility] Comment on above: Performed By: #### 2 54710 #### [facility] [place],[address] [place] [address] AST [Catalytic activity/Vol] 17 U/L Normal 13 - 39 [facility] Comment on above: Performed By: #### 2 96785 #### [facility] [place],[address] [place] [address] B/C RATIO 21 ratio Normal 0 - 30 [facility] Comment on above: Performed By: #### 2 60531 #### [facility] [place],[address] [place] [address] Bilirubin [Mass/Vol] 0.3 mg/dL Normal 0.2 - 1.0 [facility] Comment on above: Performed By: #### 2 11112 #### [facility] [place],[address] [place] [address] Calcium [Mass/Vol] 8.7 mg/dL Normal 8.5 - 10.1 [facility] Comment on above: Performed By: #### 2 18576 #### [facility] [place],[address] [place] [address] Chloride [Moles/Vol] 98 mmol/L Normal 98 - 107 [facility] Comment on above: Performed By: #### 2 66356 #### [facility] [place],[address] [place] [address] CMP with eGFR Normal [facility] Comment on above: Result Comment: COMP REHENSIVE METABOLIC PANEL Performed By: #### 2 48465 #### [facility] [place],[address] [place] [address]91 CO2 [Moles/Vol] 31.9 mmol/L Normal 21.0 - 32.0 [facility] Comment on above: Performed By: #### 2 12909 #### [facility] [place],[address] [place], [place] [id number] Creatinine [Mass/Vol] 0.68 mg/dL Normal 0.55 - 1.02 [facility] Comment on above: Performed By: #### [id number] #### [facility] [place],[address] [place], [place] [id number] GFR/1.73 sq M.predicted among non-blacks MDRD (S/P/Bld) [Vol rate/Area] mL/min/{1.73_m2} Normal 60 - 999 [facility] [place] Comment on above: Performed By: #### 2 [id number] #### [facility] [place],[address] [place] [address] Result Comment: ACCO RDING TO THE NATIONAL KIDNEY DISEASE EDUCATION PROGRAM(NKDE), A NORMAL eGFR IS A VALUE GREATER THAN OR EQUAL TO 60 ML/MIN/1.73 SQ METERS. CHRONIC KIDNEY DISEASE: <60mL/MIN/1.73 SQ METERS KIDNEY FAILURE: <15mL/MIN/1.73 SQ METERS THIS TEST SHOULD ONLY BE USED FOR PATIENTS 18 YEARS OF AGE AND OLDER. Globulin (S) [Mass/Vol] 3.8 g/dL Normal 1.5 - 3.8 [facility] Comment on above: Performed By: #### 2 [id number] #### [facility] [place],[address] [place], [place] [id number] Glucose [Mass/Vol] 87 mg/dL Normal 74 - 106 [facility] Comment on above: Performed By: #### 2 [id number] #### [facility] [place],[address] [place] [address] Potassium [Moles/Vol] 4.0 mmol/L Normal 3.5 - 5.1 [facility] Comment on above: Performed By: #### 2 [id number] #### [facility] [place],[address] [place] [address] Protein [Mass/Vol] 7.4 g/dL Normal 6.4 - 8.2 [facility] Comment on above: Performed By: #### 2 [id number] #### [place] [address],[place] [address] Sodium [Moles/Vol] 135 mmol/L Low 136 - 145 [facility] Comment on above: Performed By: #### 2 [id number] #### [facility] [place],[address] [place] [address] Urea nitrogen [Mass/Vol] 14 mg/dL Normal 7 - 18 [facility] [place] Comment on above: Performed By: #### 2 [id number] #### [facility] [place],[address] [place] [address] LIPID PROFILEon 11-07-2023 Cholesterol [Mass/Vol] 238 mg/dL Normal 0 - 240 [facility] Comment on above: Performed By: #### 2 [id number] #### [facility] [place],[address] [place] [address] Cholesterol in HDL [Mass/Vol] 72 mg/dL High 40 - 60 [facility] [place] Comment on above: Performed By: #### 2 [id number] #### [facility] [place],[address] [place] [address] Cholesterol in LDL [Mass/Vol] 153 mg/dL High 0 - 129 [facility] [place] Comment on above: Performed By: #### 2 [id number] #### [facility] [place],[address] [place] [address] Cholesterol.total/Choles terol in HDL [Mass ratio] 3.3 {ratio} Normal 0.0 - 5.0 [facility] [place] Comment on above: Performed By: #### 2 [id number] #### [facility] [place],[address] [place] [address] Lipid 1996 panel Normal [facility] Comment on above: Result Comment: LIPI D PROFILE Performed By: #### 2 [id number] #### [facility] [place],[address] [place] [address] Triglyceride [Mass/Vol] 64 mg/dL Normal 0 - 150 [facility] Comment on above: Performed By: #### 2 [id number] #### Jeremy [facility],[address] [address] Basophil percentageon 2021 Chloride [Moles/Vol] 101 mmol/L 98-[address] [facility] [address] [facility] Work Phone: Glucose [Mass/Vol] 85 mg/dL 74-106 [facility] Work Phone: Potassium [Moles/Vol] 3.9 mmol/L 3.5-5.1 [facility] Work Phone: Sodium [Moles/Vol] 135 mmol/L 136-145 [facility] Work Phone: Laboratory - Chemistry and C hemistry - challengeon 01-27-2022 CO2 [Moles/Vol] 28.0 mmol/L 21.0-32.0 [facility] Work Phone: Urea nitrogen/Creatinine [Mass ratio] 22.1 mg/mg 10-20 [facility] Work Phone: Sodium (U) [Moles/Vol] 39 mmol/L Not Establ. [facility] Work Phone: No Panel Informationon 01-27 Estimated GFR (MDRD) Amer 104 mL/min >60 [facility] Work Phone: Comment on above: GFR Calc Estimated GFR (MDRD) Non-Af Amer 86 mL/min >60 [facility] Work Phone: Comment on above: Non- GFR Calc Miscellaneous Test See comment [facility] Work Phone: Comment on above: TEST RESULT LIMITSOs molality 278 Low mOsmol/kg 280 - 301 TESTING PERFORMED AT [facility]. ORIGINAL REPORT ON FILE IN LAB CONTAINS ADDITIONAL TEST SITE INFORMATION. Serum or plasma calcium tala urement (mass/volume)on 01-27-2022 Calcium [Mass/Vol] 8.7 mg/dL 8.5-10.1 [facility] Work Phone: Serum or plasma creatinine m easurement (mass/volume)on 01-27-2022 Creatinine [Mass/Vol] 0.72 mg/dL 0.55-1.02 [facility] Work Phone: Comment on above: The validity of the calculated GFR & GFRAA in patients over 70 years has not been determined. Clinical correlation is essential. Serum or plasma urea nitroge n measurement (mass/volume)on 01-27-2022 Urea nitrogen [Mass/Vol] 16 mg/dL 7-18 [facility] Work Phone: Thin prep Papanicolaou smear with manual screeningon 01-27-2022 Thin prep Papanicolaou smear with manual screening 6 5-15 [facility] Work Phone: Urine osmolality measurement on 01-27-2022 Osmolality (U) [Osmolality] 678 mOsm/KG >50 [facility] Work Phone: Comment on above: Normal Urine Referen ce Ranges Random: 50 - 1200 mOsm/kg H20 depending on fluid intake Random: >850 mOsm/kg after 12 hour fluid restriction 24 hour: ~300 - 900 mOsm/kg H2O Vital Signs Date Time Vital Sign Value Performing Clinician Faci lity 01-15-2022 14:40-0400 Body height 157.48 cm [facility] Work Phone: 01-15-2022 14:40-0400 Body mass index (BMI) [Ratio] 31 kg/m2 [facility] Work Phone: 01-15-2022 14:40-0400 Body temperature 97.9 [degF] [facility] Work Phone: 01-15-2022 14:40-0400 Body weight 77 kg [facility] Work Phone: 01-15-2022 14:40-0400 Diastolic blood pressure 93 mm[Hg] [facility] Work Phone: 01-15-2022 14:40-0400 Heart rate 104 /min [facility] Work Phone: 01-15-2022 14:40-0400 Respiratory rate 16 /min [facility] Work Phone: 01-15-2022 14:40-0400 SaO2% (BldA) [Mass fraction] 98 % [facility] Work Phone: 01-15-2022 14:40-0400 Systolic blood pressure 168 mm[Hg] [facility] Work Phone: Encounters Encounter Date Encounter Type Care Provider Facility Start: 01-16-2025 End: 01-16-2025 ambulatory No Primary Care Physician Facility:[facility] Start: 11-24-2024 End: 11-24-2024 ambulatory No Primary Care Physician -[facility] Start: 11-24-2024 End: 11-24-[address] Samanta Teran MD -[facility] Work Phone: Start: 11-24-2024 End: 11-24-2024 ambulatory No Primary Care Physician Facility:[facility] Start: 11-17-2024 ambulatory No Primary Car e Physician Facility:[facility] Start: 11-17-[address] Samanta Teran MD -[facility] Work Phone: Start: 05-02-2024 End: 05-02-2024 ambulatory No Primary Care Physician Facility:[facility] Start: 04-14-2024 End: 04-14-2024 ambulatory No Primary Care Physician Facility:[facility] Start: 11-07-2023 End: 11-07[facility] Start: 01-27-2022 End: 01-27-2022 ambulatory [facility] Work Phone: Start: 01-27-2022 End: 01-27-2022 Departed Referred [facility] Start: 01-15-2022 End: 01-15-2022 Emergency department patient visit [facility]Emergency Department Procedures Date Procedure Procedure Detail Performing Clinician Start: 11-17-2024 Vitamin D, 25-hydrox y measurement No Primary Care Physician Comment on above: Vitamin D StatusDefi ciency: <20 ng/mL (50nmol/L)Insufficiency: 20-30 ng/mL (50-75 nmol/L)Sufficiency: 30-100 ng/mL (75-250 nmol/L)Toxicity: >100 ng/mL (>250 nmol/L) Plan of Treatment Date Care Activity Detail Author Patient Education ED Anxiety Reaction [facility] Work Phone: Patient referral [facility] Work Phone: Payers Date Payer Category Payer Medicaid [id number] 2024 Self-pay Medicare MEDICARE PART A B [id number] Unknown [id number] [id number] [id number] Unknown [id number] [id number] [id number] Unknown [id number] [id number] [id number] Unknown [id number] [id number] Unknown [id number] [id number] [id number] Social History Date Type Detail Facility Start: 01-15-2022 End: 01-15-2022 Tobacco smoking status NHIS Unknown if ever smoked [facility] Work Phone: Start: 1955 Sex Assigned At Female [facility] Start: 01-15-2022 Tobacco smoking stat us NHIS Never smoked tobacco (finding) [facility] Evaluation note Note Date & Type Note Facility Evaluation note No assessment information availa ble [facility] Work Phone: Hospital Discharge instructions Note Date & Type Note Facility Hospital Discharge instructions Additional Instructions Please no longer see the significant other who upset you. If you feel threatened please call 911. [facility] Work Phone: Reason for referral (narrative) Note Date & Type Note Facility Reason for referral (narrative) No reason for referral information available [facility] Work Phone: Chief Complaint and Reason for Visit Chief Complaint mental health Chief Complaint mental health LABWORK Chief Complaint Admit Date [facility] LAB WORK November 17, 2024 5: 00am [facility] WORK November 24, 2024 7 :35am Advance Directives No Advanced Directives Records Found Advance Directive Response Recorded Date/ Time Living Will No January 15, 2022 2:56pm Power of Cans Vacuum Tester No December 2:56pm Advance Directive Response Recorded Date/ Time Living Will No January 15, 2022 1:56pm Power of Cans Vacuum Tester No December 1:56pm Summary Purpose Family History No Family History Records FoundNo Family History Records Found Additional Source Comments Goals (unrecognized section and content) Goals may be documented in a n alternate sectionGoals may be documented in an alternate sectionGoals may be documented in an alternate section INFORMATION SOURCE (unrecogn ized section and content) DATE CREATED AUTHOR 11/11/2023 Jeremy Dueñas [facility] DATE CREATED AUTHOR AUTHOR'S ORGANIZ ATION 02/22/2025 [facility] Care Teams (unrecognized sec tion and content) Team Status: Active Member Role/Relationship Status Dates No Primary Care Physician Primary Care Provider Active Team Status: Active Member Role/Relationship Status Dates No Primary Care Physician Primary Care Provider Active Start: November 17, 2024 Dr. Samanta PANCHAL MD Attending Provider Active Start: November 17, 2024 Team Status: Inactive Member Role/Relationship Status Dates No Primary Care Physician Primary Care Provider Active Start: November 24, 2024 End: November 24, 2024 Dr. Samanta PANCHAL MD Attending Provider Active Start: November 24, 2024 End: November 24, 2024 FOR RECORDS PERTAINING TO PATIENTS WHO ARE [...] BE BASED ON THE PRIMARY CLINICAL RECORDS. [email or web address]. provides no warranty or guarantee of the accuracy or completeness of information in this document.
[2025-02-26 09:37] LABS: Anion Gap 8 (5-15); BUN 13 mg/dL (4-19); BUN/Creat Ratio 21.8 RATIO (10-20); Calcium,Total 8.5 mg/dL (7.6-11.0); Carbon Dioxide 24.8 mmol/L (21.0-32.0); Chloride 100 mmol/L (98-108); Glucose 93 mg/dL (70-99); Potassium 4.1 mmol/L (3.3-5.1)
== END ==
LOC: OLS.SWAL 05:00
PROVIDERS: Visit Provider Internal Medicine
DX: E78.00 Pure hypercholesterolemia, unspecified (principal)
CPT/HCPCS: 36415; 80048

== ENCOUNTER → 2025-03-06 05:00 | Outpatient (REF) | payer MEDICARE, MEDICAID, SELFPAY ==
[2025-03-06 08:00] LABS: Anion Gap 9 (5-15); BUN 11 mg/dL (4-19); BUN/Creat Ratio 18.9 RATIO (10-20); Calcium,Total 8.9 mg/dL (7.6-11.0); Carbon Dioxide 26.4 mmol/L (21.0-32.0); Chloride 101 mmol/L (98-108); Glucose 95 mg/dL (70-99); Potassium 4.0 mmol/L (3.3-5.1)
== END ==
LOC: OLS.SWAL 05:00
PROVIDERS: Visit Provider Internal Medicine
DX: E87.1 Hypo-osmolality and hyponatremia (principal)
CPT/HCPCS: 36415; 80048